=== PATIENT | female | born 1970 | race African-American/Black ===

== ENCOUNTER 2016-12-15 10:04 | Inpatient (IN) | payer MEDICARE, MEDICAID ==
[2016-12-15] MEDS ORDERED: Ondansetron HCl/PF 4 MG/2 ML Vial IVP PRN ×2 (13:37→13:49)
[2016-12-15] MEDS ORDERED: Ondansetron ODT 4 MG TAB SL PRN (13:37)
[2016-12-15] MEDS ORDERED: Aspirin 325 MG TAB PO SCH (13:45)
[2016-12-15] MEDS ORDERED: Ondansetron ODT 4 MG TAB PO PRN (13:49)
[2016-12-15] MEDS ORDERED: Labetalol HCl 100 MG/20 ML VIAL SLOW IVP PRN (13:49)
--- NOTE | 2016-12-15 15:15 | HP ---
DATE OF ADMISSION: 12/15/2016 PRIMARY CARE PHYSICIAN: Dr. Guillermo Terry. CHIEF COMPLAINT: Slurred speech and facial droop. HISTORY OF PRESENT ILLNESS: This is a 46-year-old -Lebanese female, who is a current residen t of [facility] in [place], [place], who [facility] [place] with left facial droop, difficulty with speech and left-sided weakness concerning for an acute CVA. The patient with an apparent history of prior ischemic CVA in 2013 wi th questionable left-sided weakness; however, patient stated she has been able to use her left upper extremity and left lower leg since the initial stroke in 2013. The patient was not taking aspirin or anticoagulation at the custodial according to records and confirmed by custodial staff. In the emergency room, the patient received aspirin 300 mg rectally as well as intravenous normal sali ne. The patient states she is minimally ambulatory at the group home facility due to high fall risk. The patient does state that she has been eating a modified diet with thickened liquids due t o concern for dysphagia. In the emergency room, the patient underwent general evaluation including a CT imaging of the brain showing no acute process. Chronic changes were noted. Please see dictate d report for full details. Patient was referred to the stroke unit and Hospitalist Service for furt her evaluation. PAST MEDICAL HISTORY: 1. Question of ischemic CVA in 2013. 2. Hyperlipidemia. 3. Hypertension. 4. History of atrial fibrillation. 5. Chronic seizure disorder. 6. Nonischemic cardiomyopathy with ejection fraction of 30%-40%, status post ICD placement. 7. History of peptic ulcers. 8. Morbid obesity. PAST SURGICAL HISTORY: 1. Status post right frontal craniectomy with biopsy showing leptomeninges. 2. Status post tympanostomy with bilateral ear tube placement. 3. Status post cardiac catheterization, 2015, showing normal coronary anatomy with ejection fractio n of 30%-40%. CURRENT MEDICATIONS: 1. Amiodarone 400 mg p.o. b.i.d. 2. Carvedilol 6.25 mg p.o. b.i.d. 3. Keppra 1200 mg p.o. b.i.d. 4. Lisinopril 10 mg 1 tab p.o. daily. 5. Phenobarbital 64.8 mg p.o. daily. 6. Potassium chloride 20 mEq p.o. b.i.d. 7. Spironolactone 50 mg p.o. daily. 8. Torsemide 100 mg p.o. b.i.d. ALLERGIES: TOMATOES AND PEARS. No known drug allergies. FAMILY HISTORY: Grandmother with history of heart block and pacemaker placement. Multiple family m embers with coronary artery disease. SOCIAL HISTORY: Patient resides at [facility] in [place], [place]. Di sabled, minimally ambulatory, requiring assistance with activities of daily living. No current toba tobacco sample puller, alcohol, or illicit drug use. REVIEW OF SYSTEMS: The following complete review of systems was negative, unless otherwise mentione d in the HPI or below: Constitutional: Weight loss or gain, ability to conduct usual activities. Skin: Rash, itching. Eyes: Double vision, pain. ENT/Mouth: Nose bleeding, neck stiffness, pain, tenderness. Cardiovascular: Palpitations, dyspnea on exertion, orthopnea. Respiratory: Shortnes s of breath, wheezing, cough, hemoptysis, fever, or night sweats. Gastrointestinal: Poor appetite, abdominal pain, heartburn, nausea, vomiting, constipation, or diarrhea. Genitourinary: Urgency, f requency, dysuria, nocturia. Musculoskeletal: Pain, swelling. Neurologic/Psychiatric: Anxiety, d epression. Allergy/Immunologic: Skin rash, bleeding tendency. PHYSICAL EXAMINATION: VITAL SIGNS: On admission, blood pressure 99/78, pulse 71, respiratory rate 17, temperature 97.6 d egrees Fahrenheit, O2 saturation 98% on 2 liters per minute by nasal cannula. GENERAL APPEARANCE: This is a 46-year-old -Lebanese female, somewhat lethargic, responds to questions when directly engaged and falls asleep. HEENT: Pupils are equal, round, and reactive to light and accommodation. Extraocular muscles are i ntact. Nares patent. OP is clear. Patient noted drooling during the exam. Left facial asymmetry noted. NECK: Supple, no cervical adenopathy, no thyromegaly, no carotid bruits, no JVD appreciated. Cervi niya spine with full active and passive range of motion. CHEST: Lungs are clear to auscultation bilaterally. Diminished breath sounds in the bases. CARDIOVASCULAR: S1, S2, without noted murmur. ABDOMEN: Obese, soft, nontender, nondistended. Bowel sounds are positive in all four quadrants. L andmarks are difficult to palpate due to patient's body habitus. No rebound or guarding noted. EXTREMITIES: Warm and dry with fair turgor. Minimal edema to the bilateral lower extremities. Pul ses palpable distally at the dorsalis pedis, posterior tibial, and popliteal arteries bilaterally. Capillary refill less than 2 seconds. NEUROLOGIC EXAM: Left facial asymmetry. Left hemiparesis. Expressive aphasia. Patient not observ ed ambulatory during the exam. Lethargy unless directly engaged in communication. PERTINENT LABORATORY AND X-RAY FINDINGS: Sodium 125, potassium 5.5, chloride 91, CO2 of 21, BUN 40, creatinine 1.49 with estimated GFR of 46, glucose 114, calcium 9.1. LFTs within normal limits. Al kaline phosphatase 240, troponin I 0.181, albumin 3.2. CBC showed a white blood cell count of 5.6, hemoglobin 12, hematocrit 39, platelet count [address] of the brain without contrast dated 12/15/2016 showed no acute intracranial process. Chronic changes noted. Please see dictated report for full details. EKG dated 12/15/2016 by my interpretation shows AV pacing with ra khadra in the 70s. ASSESSMENT AND PLAN: 1. Acute cerebrovascular accident. The patient will be admitted to the stroke unit. Questionable ischemic event, likely due to patient's history and without apparent chronic aspirin therapy. We wi ll continue aspirin 300 mg per rectum daily. Continue general stroke protocol. Check 2D transthora cic echocardiogram and carotid Doppler study. MRI contraindicated due to patient's ICD placement. We will obtain speech, PT, and OT assessment. Consult Neurology service for further recommendations . 2. Left hemiparesis secondary to #1. See #1 above. General fall precautions. PT evaluation pendi ng. 3. Expressive aphasia. We will obtain speech therapy consult and keep patient n.p.o. High aspirat ion risk. 4. Hypertension. We will continue with permissive hypertension for stroke protocol. P.r.n. labeta lol and hydralazine. 5. Hyponatremia. We will repeat sodium level in the a.m. Continue intravenous normal saline at 75 mL per hour. 6. Hyperkalemia. Hold potassium supplementation. Continue intravenous fluids and repeat potassium level in the a.m. 7. Question of acute kidney injury. We will continue intravenous normal saline as stated previousl y. Avoid nephrotoxic agents and contrast media. Repeat creatinine and monitor urine output. 8. Prophylaxis. Sequential compression devices while in bed. Lovenox 40 mg subcutaneously q.24 ho urs. General aspiration precautions. 9. Code status is full. Surrogate medical decision maker is patient's sister.
--- NOTE | 2016-12-15 18:10 | CON ---
DATE OF CONSULTATION: 12/15/2016 CONSULTING PHYSICIAN: Hospitalist Service. IMPRESSION: 1. New onset of left-sided weakness suggestive of stroke. 2. Severely depressed cardiac function with an ejection fraction of 10-15%, raising the possibility of cardioembolic event. 3. Hypertension. 4. Diabetes. 5. Hyperlipidemia. 6. Obesity. 7. History of atrial fibrillation. PLAN: 1. Repeat CT scan of the brain tomorrow. Given her pacemaker. 2. Continue to monitor clinical course. Ms. Powers is a 46-year-old white female who is currently a resident of [facility] in [place]. She presented to the emergency room with a left-sided weakness. She had a CT scan of the brain which did not show any acute changes according to the note. She was admitted for further evaluation, showed a carotid Doppler study, which did not show any significant stenosis . Her echocardiogram showed 10-15% ejection fraction. The patient is unable to give me any history at this point. PAST MEDICAL HISTORY: As listed above. PAST SURGICAL HISTORY: Pacemaker implantation. MEDICATIONS: Amiodarone, Coreg, Keppra, lisinopril, phenobarbital, potassium, spironolactone and to rsemide. ALLERGIES: No medication allergies. FAMILY HISTORY: Noncontributory. SOCIAL HISTORY: No current tobacco use. REVIEW OF SYSTEMS: Not obtainable. PHYSICAL EXAMINATION: GENERAL: She is an obese black female lying in bed in no apparent distress. VITAL SIGNS: Blood pressure 99/78, pulse 71, respirations 17, temperature 97.6. HEENT: Pupils are equal in size and minimally reactive. Conjunctivae clear. Cranium normocephalic and atraumatic. NECK: Supple. EXTREMITIES: No cyanosis noted. NEUROLOGIC: She seemed to be quite lethargic, but would answer with minimally lengthed answers. Sp eech seemed to be a bit dysarthric. I did not see any appreciable facial droop while lying down. T he left arm was flaccid. She held the right side up against gravity when I manipulated it. She had upgoing toe on the left and downgoing on the right. No abnormal movements were seen. EKG shows a paced rhythm. LABORATORY STUDIES: Reviewed. SUMMARY: A middle-aged woman with multiple medical problems who appears to have an acute stroke. S he has not been on any type of anticoagulation or antiplatelet therapy. Given her poor ejection fra ction, anticoagulation would appear to be the most appropriate choice if there is no evidence of sec ondary hemorrhage.
--- NOTE | 2016-12-15 18:12 | ULT ---
CAROTID ULTRASOUND WITH LOMBARDI SCALE AND DOPPLER DUPLEX COLOR FLOW IMAGING SPECTRAL ANALYSIS PERFORMED: 12/15/16 CLINICAL INDICATION: CVA. FINDINGS: There is mild intimal hyperplasia of the carotid arteries. PEAK SYSTOLIC VELOCITY (CM/S): Right CCA 26 Left CCA 48 Right ICA 15 Left ICA 54 There is antegrade flow within the visualized bilateral vertebral arteries. IMPRESSION: 1. No hemodynamically significant stenosis of the right internal carotid artery. 2. No hemodynamically significant stenosis of the left internal carotid artery. POS: MARCY
[2016-12-15] MEDS: Sodium Chloride 0.9% 1,000 ML IV SCH (18:43)
[2016-12-15] MEDS ORDERED: FLU VACC QS2017-18 36 mo. & older 0.5 ML SYRINGE IM ONE (20:30)
[2016-12-15] MEDS: Atorvastatin Calcium 40 MG TAB PO SCH ×2 (21:09→21:24)
[2016-12-15] MEDS: Famotidine/PF 20 mg/2ml Vial SLOW IVP SCH (21:09)
[2016-12-16 05:52] LABS: Hematocrit 39.2 % (36.0-47.0); Mean Platelet Volume 8.3 fL (7.4-10.4); Red Blood Cell (RBC) Count 4.71 mill/uL (4.20-5.40); White Blood Cell (WBC) Count 4.6 thou/uL (4.8-10.8)
[2016-12-16 06:01] LABS: ALT (SGPT) 11 U/L (8-55); AST (SGOT) 15 U/L (5-34); Alkaline Phosphatase 240 U/L (40-150); Anion Gap 18 mmol/L (10-20); BUN (Urea Nitrogen) 45 mg/dL (7.0-18.7); Bilirubin, Total 1.2 mg/dL (0.2-1.2); Calc. Creatinine Clearance 102 mL/min (70-130); Calcium 9.5 mg/dL (7.8-10.44); Carbon Dioxide 20 mmol/L (22-29); Chloride 94 mmol/L (98-107); Cholesterol 101 mg/dl (< 200 Desired); Estimated GFR-MDRD 46; LDL Cholesterol, Calculated 67 mg/dL; Protein, Total 8.1 g/dL (6.0-8.3)
[2016-12-16 06:07] LABS: Band 3 % (5-11)
[2016-12-16 06:41] LABS: Neutrophil 70 % (42-75)
[2016-12-16] MEDS: Sodium Chloride 0.9% 1,000 ML IV SCH ×3 (07:32→16:36)
[2016-12-16] MEDS: Enoxaparin Sodium 40 MG/0.4 ML SYRINGE SC SCH (08:40)
[2016-12-16] MEDS: Aspirin 300 MG Suppository PR SCH (12:17)
[2016-12-16] MEDS: Famotidine/PF 20 mg/2ml Vial SLOW IVP SCH ×2 (12:53→20:20)
--- NOTE | 2016-12-16 15:14 | PDOC.PN ---
- Subjective Encounter Start Date: 12/16/16 Encounter Start Time: 15:10 Subjective: f/u for CVA and L hemiparesis, dysphagia and expressive aphasia. -: Remains unsafe for po intake. - Objective Resuscitation Status: Resuscitation Status FULL:Full Resuscitation MAR Reviewed: Yes Vital Signs & Weight: Vital Signs (12 hours) Temp Pulse Pulse Resp BP BP Pulse Ox 12/16/16 11:26 97.6 F 70 18 93/67 97 12/16/16 08:57 68 115/67 12/16/16 08:50 68 115/67 12/16/16 07:40 97.6 F 68 18 12/16/16 07:30 97.6 F 68 18 102/79 95 12/16/16 04:30 97.7 F 73 12 107/73 95 Weight Admit Weight 297 lb Weight 297 lb I&O: 12/15/16 12/16/16 12/17/16 06:59 06:59 06:59 Intake Total 754 Balance 754 Result Diagrams: 12/16/16 05:14 12/16/16 05:14 Additional Labs: Laboratory Tests 12/15/16 08:50 Sodium 125 L Potassium 5.5 H Creatinine 1.49 H Radiology Reviewed by me: Yes (2D Echo - EF 10-15%, mod-severe MR, mod TR, GLENDY) EKG Reviewed by me: Yes (Tele - A-paced in 70's) Phys Exam - Physical Examination Constitutional: NAD drooling, left facial droop HEENT: PERRLA, oral pharynx no lesions Neck: no JVD, supple Respiratory: no wheezing, clear to auscultation bilateral Cardiovascular: RRR Gastrointestinal: soft, non-tender, no distention, positive bowel sounds Musculoskeletal: pulses present, edema present L hemiparesis, expressive aphasia, L facial droop Skin: normal turgor, cap refill <2 seconds Dx/Plan (1) CVA (cerebral vascular accident) Code(s): I63.9 - CEREBRAL INFARCTION, UNSPECIFIED Status: Acute Qualifiers: Laterality of affected vessel: right Comment: Continue ASA 300mg ND daily, general stroke protocol, Lipitor 40mg HS (2) Acute left hemiparesis Code(s): G81.94 - HEMIPLEGIA, UNSPECIFIED AFFECTING LEFT NONDOMINANT SIDE Status: Acute Comment: Secondary to #1, PT/OT (3) Expressive aphasia Code(s): R47.01 - APHASIA Status: Acute (4) Dysphagia Code(s): R13.10 - DYSPHAGIA, UNSPECIFIED Status: Acute Qualifiers: Dysphagia type: oropharyngeal phase Qualified Code(s): R13.12 - Dysphagia, oropharyngeal phase Comment: ST restricting po intake due to high aspiration risk, reassess in 24h (5) HTN (hypertension) Code(s): I10 - ESSENTIAL (PRIMARY) HYPERTENSION Status: Chronic Qualifiers: Hypertension type: essential hypertension Qualified Code(s): I10 - Essential (primary) hypertension (6) Morbid obesity Code(s): E66.01 - MORBID (SEVERE) OBESITY DUE TO EXCESS CALORIES Status: Chronic (7) Non-ischemic cardiomyopathy Code(s): I42.9 - CARDIOMYOPATHY, UNSPECIFIED Status: Chronic Comment: EF 10- 15%, continue Lisinopril 10mg daily, AICD/pacer in place (8) NNEKA (acute kidney injury) Code(s): N17.9 - ACUTE KIDNEY FAILURE, UNSPECIFIED Status: Acute Comment: Low volume IVF's, avoid nephrotoxic meds and contrast, repeat creatinine in am (9) Hyponatremia Code(s): E87.1 - HYPO-OSMOLALITY AND HYPONATREMIA Status: Acute Comment: mild, recheck Na+ level in am (10) Hyperkalemia Code(s): E87.5 - HYPERKALEMIA Status: Acute Comment: Improved marginally, continue low-volume IVF's - Plan PT/OT, social work lecturer, speech therapy, respiratory therapy, DVT proph w/SCDs Stable overall -: Continue NPO status and reassess in 24h -: Continue ASA 300mg ND daily -: Continue IV NS at 50ml/h -: PT/OT for ROM exercises * Repeat CT Brain in am * AM lab: BMP
[2016-12-16] MEDS: levETIRAcetam In NaCl (Iso-Os) 1,000 MG in Premix Bag 1 BAG IVPB SCH ×4 (17:27→20:20)
[2016-12-16] MEDS: Atorvastatin Calcium 40 MG TAB PO SCH (20:21)
[2016-12-17] MEDS: Sodium Chloride 0.9% 1,000 ML IV SCH ×2 (03:53→11:30)
[2016-12-17 05:42] LABS: Anion Gap 17 mmol/L (10-20); BUN (Urea Nitrogen) 44 mg/dL (7.0-18.7); Calc. Creatinine Clearance 107 mL/min (70-130); Calcium 9.3 mg/dL (7.8-10.44); Carbon Dioxide 20 mmol/L (22-29); Chloride 100 mmol/L (98-107); Estimated GFR-MDRD 49
--- NOTE | 2016-12-17 09:04 | CT ---
HEAD CT NONCONTRAST: Comparison: 12-15-16 Clinical history: CVA. FINDINGS: Newly developed region of mass producing edema is present within the anterior right cerebral hemisph ere occupying the frontal, anterior parietal and anterior right temporal lobe. This does result in m ild ventricular effacement and slight shift of midline, with septum pellucidum deviated 4-5 mm to th e left of midline. There is no intracranial hemorrhage identified. Re-demonstration of left frontal encephalomalacia with ex vacuo dilation of the ventricular system. Newly developed edema involves th e right basal ganglia and thalamus. Post-operative changes of the calvarium re-demonstrated. IMPRESSION: Interval development of prominent sized right MCA distribution infarction with associated edema and mass effect. This does result in effacement of the ventricular system and mild leftward subfalcine h erniation. Telephone call placed to Dr. Jackson at 0845 hours, 12-17-16. Code CR POS: MARCY
[2016-12-17] MEDS: levETIRAcetam In NaCl (Iso-Os) 1,000 MG in Premix Bag 1 BAG IVPB SCH ×4 (09:46→21:41)
[2016-12-17] MEDS: Famotidine/PF 20 mg/2ml Vial SLOW IVP SCH ×2 (09:46→21:41)
[2016-12-17] MEDS: Aspirin 300 MG Suppository PR SCH (09:46)
--- NOTE | 2016-12-17 10:39 | PDOC.PN ---
- Subjective Encounter Start Date: 12/17/16 Encounter Start Time: 09:25 -: non-verbal Subjective: pt was unresponsive -: rpt CT head done this AM showed subfalcine herniation - Objective Resuscitation Status: Resuscitation Status FULL:Full Resuscitation MAR Reviewed: Yes Vital Signs & Weight: Vital Signs (12 hours) Temp Pulse Resp BP Pulse Ox 12/17/16 10:11 96.2 F L 72 18 106/81 100 12/17/16 07:10 97.5 F L 70 16 93/67 98 12/17/16 03:26 97.3 F L 70 16 109/80 96 12/16/16 23:35 97.2 F L 68 16 102/78 94 L Weight Admit Weight 297 lb Weight 297 lb I&O: 12/16/16 12/17/16 12/18/16 06:59 06:59 06:59 Intake Total 754 Balance 754 Result Diagrams: 12/16/16 05:14 12/17/16 05:16 Radiology Reviewed by me: Yes Phys Exam - Physical Examination Neck: no nodes, no JVD Respiratory: no wheezing, no rales, no rhonchi diminished BS AT BAESE Cardiovascular: RRR, no significant murmur, no rub, gallop Gastrointestinal: soft, non-tender, no distention, positive bowel sounds MORBID OBESITY Musculoskeletal: no edema, pulses present LETHARGIC, AORUSABLE. NO RESPONSE TO VERBAL QUERIES Skin: no rash Dx/Plan (1) NNEKA (acute kidney injury) Code(s): N17.9 - ACUTE KIDNEY FAILURE, UNSPECIFIED Status: Acute Comment: Low volume IVF's, avoid nephrotoxic meds and contrast, repeat creatinine in am (2) Acute left hemiparesis Code(s): G81.94 - HEMIPLEGIA, UNSPECIFIED AFFECTING LEFT NONDOMINANT SIDE Status: Acute Comment: Secondary to #1, PT/OT (3) CVA (cerebral vascular accident) Code(s): I63.9 - CEREBRAL INFARCTION, UNSPECIFIED Status: Acute Qualifiers: Laterality of affected vessel: right Plan: CVA evloving with subfalcine herniation. Neurosurgical consultation Comment: Continue ASA 300mg ND daily, general stroke protocol, Lipitor 40mg HS (4) Dysphagia Code(s): R13.10 - DYSPHAGIA, UNSPECIFIED Status: Acute Qualifiers: Dysphagia type: oropharyngeal phase Qualified Code(s): R13.12 - Dysphagia, oropharyngeal phase Plan: keep NPO Comment: ST restricting po intake due to high aspiration risk, reassess in 24h (5) Expressive aphasia Code(s): R47.01 - APHASIA Status: Acute Plan: cont neuro checks (6) Acute on chronic systolic (congestive) heart failure Code(s): I50.23 - ACUTE ON CHRONIC SYSTOLIC (CONGESTIVE) HEART FAILURE Status : Acute Plan: stable, will monitor cardio resp status closely Comment: Improved, continue Lasix 20mg IV q12h, may transition to po Lasix in 24h (7) HTN (hypertension) Code(s): I10 - ESSENTIAL (PRIMARY) HYPERTENSION Status: Chronic Qualifiers: Hypertension type: essential hypertension Qualified Code(s): I10 - Essential (primary) hypertension Plan: controlled, continue current care (8) Morbid obesity Code(s): E66.01 - MORBID (SEVERE) OBESITY DUE TO EXCESS CALORIES Status: Chronic (9) Non-ischemic cardiomyopathy Code(s): I42.9 - CARDIOMYOPATHY, UNSPECIFIED Status: Chronic Plan: stable Comment: EF 10-15%, continue Lisinopril 10mg daily, AICD/pacer in place (10) Hyponatremia Code(s): E87.1 - HYPO-OSMOLALITY AND HYPONATREMIA Status: Acute Plan: improved , cont present care Comment: mild, recheck Na+ level in am - Plan * .At this time pt will be transferred to [facility]. we will get neurosurgery consultation - Discharge Day Minutes spent coordinating discharge of patient: 55
[2016-12-17] MEDS: Enoxaparin Sodium 40 MG/0.4 ML SYRINGE SC SCH (10:52)
[2016-12-17] MEDS ORDERED: Mannitol 12.5 GM/50 ML SLOW IVP SCH (12:45)
[2016-12-17] MEDS ORDERED: MANNITOL 20% IVPB SCH (13:15)
--- NOTE | 2016-12-17 13:43 | CON ---
DATE OF CONSULTATION: 12/17/2016 HISTORY OF PRESENT ILLNESS: Ms. Powers is a 46-year-old woman who was admitted to [facility] on 12/15 following change in mental status, facial droop and aphasia. She was admitted to the [facility] by the Hospitalist Service. Neurosurgery was consulted for. CT scan performed this morning of the brain that shows a right-sided MCA region of infarct with a great deal of edema and 4-6 mm of midline shift and possible subfalcine herniation. The nursing staff in the stroke unit noted a chica nge in her mental status and decline in level of consciousness. She was transferred to the [facility]. U coty examination at bedside, the patient is somewhat listless, but does arouse and answer questions a ppropriately. She has some mild aphasia, which I think is more of a motor function aphasia given th e left-sided facial droop. Cranial nerve 7 is infected in the lower quadrant of the face on the lef t side. She is also unable to open her eyes that much on the left. She has no motor function in th e left upper extremity or left lower extremity. This all fits the distribution of the stroke that s he has had. She has great motor strength in the right upper and lower extremities and on the right side of her face. Even though she becomes alert and appropriate and answers questions, she quickly declines in level of consciousness and requires constant stimulation during our discussion. Neurosu ayana's recommendation at this point would not be wanting surgical intervention, but I do think a tr ial of a single dose of mannitol to see if we can improve some of her level of consciousness, it wou ld be appropriate. If it does, we can certainly continue that q.6 hours. We will start with a sing le dose of 135 grams of mannitol IV and if we see improvement, we will add q.6 hours 0.25 g/kg dosin g with paired checks of serum sodium and serum osmolality before each dose was given. Neurosurgery will continue to follow at this time. This is Andrea Gracia PA-C, dictating for Mustapha Mendez M.D.
[2016-12-17] MEDS ORDERED: IN MANNITOL IV SCH (14:00)
[2016-12-17] MEDS ORDERED: ADMIXTURE FEE IV SCH (14:00)
--- NOTE | 2016-12-17 17:01 | PDOC.EVN ---
Event Note - Event Note Event Note: pt not a candidate for A/c due to subfalcine herniation and possible need for urgent neurosurgical procedure. cont present IV fluids and monitor cardiac status.
--- NOTE | 2016-12-17 18:41 | CON ---
DATE OF CONSULTATION: 12/17/2016 REASON FOR CONSULTATION: Congestive heart failure systolic, stroke. PRIMARY HOSPITAL RECEPTIONIST: Dr. Mynor John. HISTORY OF PRESENT ILLNESS: Ms. Powers is a 46-year-old woman, patient of Dr. John. The patient wa s brought to the hospital after being found to have severe weakness of the left side of her body. S he also had a facial droop, difficulty with speech. She had a prior ischemic stroke in 2013. She s aid she had been able to use the left side of her body; however, up until the 12/15/2016. The patient now is not able to move the left side of her body. PAST MEDICAL HISTORY: 1. Questionable ischemic stroke in 2013. 2. Hyperlipidemia. 3. Hypertension. 4. Nonischemic cardiomyopathy, most recent ejection fraction prior to this admission was 30-40%. PAST SURGICAL HISTORY: She had a catheterization 2016, normal coronary arteries. MEDICATIONS PRIOR TO ADMISSION: 1. Amiodarone 400 mg twice a day. 2. Carvedilol. 3. Keppra. 4. Lisinopril. 5. Phenobarbital 6. Spironolactone. 7. Torsemide. ALLERGIES: TOMATOES and PEARS. FAMILY HISTORY: Grandmother with heart block and pacemaker. SOCIAL HISTORY: Lives in a alf facility, disabled. REVIEW OF SYSTEMS: Per the chart reveals; CONSTITUTIONAL: No significant weight gain or loss. VISION: No changes. HEARING: No changes. PULMONARY: No cough or wheezing. CARDIAC: No chest pain or pressure. GASTROINTESTINAL: No nausea, vomiting, diarrhea. SKIN: No rashes. GENERAL: The patient is very sleepy now and unable to give me the review of systems. PHYSICAL EXAMINATION: GENERAL: This is a 46-year-old woman. She is 5 foot 4 inches, 297 pounds, BMI 51. EYES: Sclerae nonicteric. Mouth, mucous membranes moist. NECK: Supple, no lymphadenopathy. LUNGS: Clear, no wheezing, rales or rhonchi. CARDIOVASCULAR: Normal S1, normal S2. There is no murmur, rub or gallop. ABDOMEN: Obese, nontender, no hepatosplenomegaly. EXTREMITIES: Warm, dry, no clubbing, cyanosis or edema. LABORATORY AND X-RAY FINDINGS: EKG reveals atrial paced ventricular sensed rhythm. The device was interrogated and function is within normal limits. There is no atrial arrhythmias according to the verbal report from the [employer] home service technician. The patient has had evaluation with a carotid Doppler showing no obstructions a brain CT showing no bleed. ASSESSMENT: 1. Recent stroke. The CT did show a mass producing edema of the anterior right cerebral hemisphere , right middle cerebral artery stroke. 2. Ejection fraction of 30-40%, interpreted as 10-15% by Dr. Staton on this admission. 3. Previous pacemaker defibrillator implantation. PLAN: 1. Dr. Melissa suggested the possibility of anticoagulation in case this is cardioembolic, does not seem to have significant vascular disease. 2. At some point, we may need to consider upgrading to a biventricular pacemaker on occasion ventri cular pacing leads to depression of left ventricular function. Dr. John will resume patient's care tomorrow. 3. At this point, it would appear appropriate to treat with carvedilol, lisinopril, and continued l ow dose amiodarone. Dr. John will resume the care tomorrow. ADDENDUM: I found old records, it actually does appear that the patient does have a biventricular device in pl [place] with INSULATION INSTALLER function.
[2016-12-17] MEDS: Atorvastatin Calcium 40 MG TAB PO SCH (21:44)
[2016-12-18] MEDS: Sodium Chloride 0.9% 1,000 ML IV SCH (06:46)
[2016-12-18] MEDS: levETIRAcetam In NaCl (Iso-Os) 1,000 MG in Premix Bag 1 BAG IVPB SCH ×4 (08:48→20:43)
[2016-12-18] MEDS: Famotidine/PF 20 mg/2ml Vial SLOW IVP SCH ×2 (08:48→20:44)
[2016-12-18] MEDS: Aspirin 300 MG Suppository PR SCH (08:48)
[2016-12-18] MEDS: Enoxaparin Sodium 40 MG/0.4 ML SYRINGE SC SCH (12:51)
--- NOTE | 2016-12-18 14:38 | PRG ---
DATE OF SERVICE: 12/18/2016 SUBJECTIVE: Ms. Powers is doing much better today than she was yesterday when the initial consultat ion. She is much more alert and awake. She has some minimal movement in the left lower extremity. No movement in the left upper extremity, but she has sensation intact in both fully. Her facial dr oop is persistent, but her speech is improving. Plan today will be to attempt a facial screening ag ain to see if she can start p.o. intake. Definitively, no surgical intervention at this time. She only had 1 dose of mannitol yesterday and I think this is appropriate. She does not need any additi onal doses. Neurosurgery will sign off at this time. Andrea Gracia PA-C dictating for Dr. Mendez.
--- NOTE | 2016-12-18 15:51 | PDOC.PN ---
- Subjective Encounter Start Date: 12/18/16 Encounter Start Time: 10:00 Subjective: pt slightly more awake, now on mannitol -: NS input appreciated -: failed bedside swallow but refusing NGT/ PEG pt still lethargic but following simple commands. is persitantly denying feeding tube placement. - Objective Resuscitation Status: Resuscitation Status FULL:Full Resuscitation Vital Signs & Weight: Vital Signs (12 hours) Temp Pulse Resp BP Pulse Ox 12/18/16 15:07 97.6 F 71 20 96/62 97 12/18/16 11:00 97.6 F 78 16 102/78 96 12/18/16 06:54 97.6 F 70 20 119/88 98 Weight Admit Weight 297 lb Weight 297 lb I&O: 12/17/16 12/18/16 12/19/16 06:59 06:59 06:59 Intake Total 955 700 Balance 955 700 Result Diagrams: 12/16/16 05:14 12/17/16 05:16 Phys Exam - Physical Examination left facial droop Respiratory: clear to auscultation bilateral Cardiovascular: RRR, no significant murmur, no rub, gallop Gastrointestinal: soft, non-tender, no distention, positive bowel sounds morbid obesity left hemiparesis unchanged Dx/Plan (1) NNEKA (acute kidney injury) Code(s): N17.9 - ACUTE KIDNEY FAILURE, UNSPECIFIED Status: Acute Comment: Low volume IVF's, avoid nephrotoxic meds and contrast, repeat creatinine in am (2) Acute left hemiparesis Code(s): G81.94 - HEMIPLEGIA, UNSPECIFIED AFFECTING LEFT NONDOMINANT SIDE Status: Acute Comment: Secondary to #1, PT/OT (3) CVA (cerebral vascular accident) Code(s): I63.9 - CEREBRAL INFARCTION, UNSPECIFIED Status: Acute Qualifiers: Laterality of affected vessel: right Comment: Continue ASA 300mg [place] daily, general stroke protocol, Lipitor 40mg HS (4) Dysphagia Code(s): R13.10 - DYSPHAGIA, UNSPECIFIED Status: Acute Qualifiers: Dysphagia type: oropharyngeal phase Qualified Code(s): R13.12 - Dysphagia, oropharyngeal phase Comment: ST restricting po intake due to high aspiration risk, reassess in 24h (5) Expressive aphasia Code(s): R47.01 - APHASIA Status: Acute (6) Acute on chronic systolic (congestive) heart failure Code(s): I50.23 - ACUTE ON CHRONIC SYSTOLIC (CONGESTIVE) HEART FAILURE Status : Acute Comment: Improved, continue Lasix 20mg IV q12h, may transition to po Lasix in 24h (7) HTN (hypertension) Code(s): I10 - ESSENTIAL (PRIMARY) HYPERTENSION Status: Chronic Qualifiers: Hypertension type: essential hypertension Qualified Code(s): I10 - Essential (primary) hypertension Comment: controlled (8) Morbid obesity Code(s): E66.01 - MORBID (SEVERE) OBESITY DUE TO EXCESS CALORIES Status: Chronic (9) Non-ischemic cardiomyopathy Code(s): I42.9 - CARDIOMYOPATHY, UNSPECIFIED Status: Chronic Comment: EF 10- 15%, continue Lisinopril 10mg daily, AICD/pacer in place (10) Hyponatremia Code(s): E87.1 - HYPO-OSMOLALITY AND HYPONATREMIA Status: Acute Comment: mild, recheck Na+ level in am - Plan * . pt still lethargic but following simple commands. is persitantly denying feeding tube placement. will recommend dobhoff tube till neuro status improved, then ST to reevaluate. Pt cannot have too much fluids indefinitely d/t her cardiac issues. withhold A/c in view of large stroke and possibility of surgery. recheck labs. f/u on cardio/ neuro input. will request case management to find out MPOA.. d/w RN, family members at bedside.
[2016-12-18 17:15] LABS: Hematocrit 42.7 % (36.0-47.0); Mean Platelet Volume 9.7 fL (7.4-10.4); Red Blood Cell (RBC) Count 4.94 mill/uL (4.20-5.40); White Blood Cell (WBC) Count 4.3 thou/uL (4.8-10.8)
[2016-12-18 17:20] LABS: Anion Gap 18 mmol/L (10-20); BUN (Urea Nitrogen) 33 mg/dL (7.0-18.7); Calc. Creatinine Clearance 127 mL/min (70-130); Calcium 9.4 mg/dL (7.8-10.44); Carbon Dioxide 19 mmol/L (22-29); Chloride 109 mmol/L (98-107); Estimated GFR-MDRD 60
[2016-12-18 17:26] LABS: Anisocytosis MODERATE=16-30 cells (100X) (0-5/hpf); Band 1 % (5-11); Burr Cells MODERATE= 6-15 cells (100X) (0-1/hpf); Hypochromia SLIGHT = 6-15 cells (100X) (0-5/hpf); Neutrophil 74 % (42-75); Nucleated RBC 1 % (0); Ovalocytes SLIGHT = 2-5 cells (100X) (0-1/hpf); Polychromasia SLIGHT = 2-3 cells (100X) (0-2/hpf); Reactive Lymphocytes 1 % (0-10); Schistocytes SLIGHT = 2-5 cells (100X) (0-1/hpf); Target Cells SLIGHT = 2-5 cells (100X) (0-1/hpf); Vacuoles SLIGHT
[2016-12-18] MEDS: Atorvastatin Calcium 40 MG TAB PO SCH (20:43)
[2016-12-19] MEDS: Sodium Chloride 0.9% 1,000 ML IV SCH (04:54)
[2016-12-19] MEDS: Famotidine/PF 20 mg/2ml Vial SLOW IVP SCH ×2 (08:20→20:39)
[2016-12-19] MEDS: Aspirin 300 MG Suppository PR SCH (08:20)
[2016-12-19] MEDS: levETIRAcetam In NaCl (Iso-Os) 1,000 MG in Premix Bag 1 BAG IVPB SCH ×4 (08:20→20:39)
[2016-12-19 10:33] LABS: Anion Gap 20 mmol/L (10-20); BUN (Urea Nitrogen) 30 mg/dL (7.0-18.7); Calc. Creatinine Clearance 129 mL/min (70-130); Calcium 9.6 mg/dL (7.8-10.44); Carbon Dioxide 19 mmol/L (22-29); Chloride 112 mmol/L (98-107); Estimated GFR-MDRD 61
--- NOTE | 2016-12-19 11:13 | PDOC.CTH ---
<Yolanda Piña - Last Filed: 12/19/16 10:57> Cardiology Progress Note - Subjective The pt was seen and evaluated. No overnight events. No cardiac complaints. According to nurse, the pt is more alert today. The pt was able to answer questions today and denied any cardiac complaints at this time. Waiting for family to confirm the PEG tube placement - Objective Vital Signs Temp Pulse Resp BP Pulse Ox 12/19/16 10:04 98 12/19/16 08:00 97.6 F 70 20 99 12/19/16 07:00 97.6 F 70 20 109/78 98 12/19/16 03:37 97.5 F L 80 18 105/75 99 12/18/16 23:35 97.6 F 80 20 113/78 98 Admit Weight 297 lb Weight 297 lb 12/18/16 12/19/16 12/20/16 06:59 06:59 06:59 Intake Total 955 1310 Balance 955 1310 - Physical Examination General/Neuro: other: (Alert) Neck: no JVD present Lungs: CTA Heart: RRR, other: Abdomen: soft Extremities: other: (No edema) - Telemetry Telemetry Rhythm: AV paced - Labs Result Diagrams: 12/18/16 16:49 12/19/16 09:49 - Assessment/Plan 1. Rt CVA with Lt side weakness - according to nurse, the pt is more alarted today; on ASA 300mg [place] daily, general stroke protocol, Lipitor 40mg HS; managed by neurologists. 2. Non-ischemic cardiomyopathy - EF 10-15%, AICD/pacer in place; Possible change to BiV when the pt is stable 3. Acute on chronic systolic heart failure - stable with current medication 4. HTN - well controlled with current medication 5. NNEKA - stable; cont. NS 50m;/h; 6. Dysphagia - NPO at this moment; possible PEG tube placement 7. Dyslipidemia - on Statin med; MAR reviewed Review of Systems - Review of Systems Constitutional: reports: no symptoms reported EENTM: reports: no symptoms reported Respiratory: reports: no symptoms reported Cardiac (ROS): reports: no symptoms reported <Nilam John - Last Filed: 12/19/16 16:41> Cardiology Progress Note - Objective Vital Signs Temp Pulse Pulse Pulse Resp BP BP 12/19/16 15:29 96.2 F L 71 18 12/19/16 12:00 71 72 103/84 94/76 12/19/16 11:44 70 20 12/19/16 10:04 12/19/16 08:00 97.6 F 70 20 12/19/16 07:00 97.6 F 70 20 BP Pulse Ox 12/19/16 15:29 101/78 97 12/19/16 12:00 12/19/16 11:44 92/69 97 12/19/16 10:04 98 12/19/16 08:00 99 12/19/16 07:00 109/78 98 Admit Weight 297 lb Weight 297 lb 12/18/16 12/19/16 12/20/16 06:59 06:59 06:59 Intake Total 955 1310 Balance 955 1310 - Labs Result Diagrams: 12/19/16 09:49 12/19/16 09:49 - Assessment/Plan Pt. seen and eval. by me.I agree with the A/P by the [employer] except the pt. already has a Bi-V AICD. Prognosis is poor. The EF may have worsened in the face of the acute CVA and may improve over the next couple weeks when the CVA problems / symptoms become more stable.
[2016-12-19 11:17] LABS: Band 4 % (5-11); Burr Cells MODERATE= 6-15 cells (100X) (0-1/hpf); Mean Platelet Volume 8.2 fL (7.4-10.4); Neutrophil 69 % (42-75); Polychromasia SLIGHT = 2-3 cells (100X) (0-2/hpf); Red Blood Cell (RBC) Count 4.99 mill/uL (4.20-5.40); White Blood Cell (WBC) Count 4.5 thou/uL (4.8-10.8)
--- NOTE | 2016-12-19 16:20 | PDOC.PN ---
- Subjective Encounter Start Date: 12/19/16 Encounter Start Time: 11:55 Subjective: pt more awake, is aphasic but following simple instructions -: claims consultant input appreciated -: has been refusing PEG - Objective Resuscitation Status: Resuscitation Status FULL:Full Resuscitation Vital Signs & Weight: Vital Signs (12 hours) Temp Pulse Pulse Pulse Resp BP BP 12/19/16 15:29 96.2 F L 71 18 12/19/16 12:00 71 72 103/84 94/76 12/19/16 11:44 70 20 12/19/16 10:04 12/19/16 08:00 97.6 F 70 20 12/19/16 07:00 97.6 F 70 20 BP Pulse Ox 12/19/16 15:29 101/78 97 12/19/16 12:00 12/19/16 11:44 92/69 97 12/19/16 10:04 98 12/19/16 08:00 99 12/19/16 07:00 109/78 98 Weight Admit Weight 297 lb Weight 297 lb I&O: 12/18/16 12/19/16 12/20/16 06:59 06:59 06:59 Intake Total 955 1310 Balance 955 1310 Result Diagrams: 12/19/16 09:49 12/19/16 09:49 Phys Exam - Physical Examination dry mm, poor oral hygiene Neck: no nodes, no JVD diminished BS at bases Cardiovascular: RRR, no significant murmur, no rub Gastrointestinal: soft, non-tender, no distention, positive bowel sounds obese left facial droop, left HP Dx/Plan (1) NNEKA (acute kidney injury) Code(s): N17.9 - ACUTE KIDNEY FAILURE, UNSPECIFIED Status: Acute Comment: Low volume IVF's, avoid nephrotoxic meds and contrast, repeat creatinine in am (2) Acute left hemiparesis Code(s): G81.94 - HEMIPLEGIA, UNSPECIFIED AFFECTING LEFT NONDOMINANT SIDE Status: Acute Comment: Secondary to #1, PT/OT (3) CVA (cerebral vascular accident) Code(s): I63.9 - CEREBRAL INFARCTION, UNSPECIFIED Status: Acute Qualifiers: Laterality of affected vessel: right Comment: Continue ASA 300mg [place] daily, general stroke protocol, Lipitor 40mg HS (4) Dysphagia Code(s): R13.10 - DYSPHAGIA, UNSPECIFIED Status: Acute Qualifiers: Dysphagia type: oropharyngeal phase Qualified Code(s): R13.12 - Dysphagia, oropharyngeal phase Comment: ST restricting po intake due to high aspiration risk, reassess in 24h (5) Expressive aphasia Code(s): R47.01 - APHASIA Status: Acute (6) Acute on chronic systolic (congestive) heart failure Code(s): I50.23 - ACUTE ON CHRONIC SYSTOLIC (CONGESTIVE) HEART FAILURE Status : Acute Comment: Improved, continue Lasix 20mg IV q12h, may transition to po Lasix in 24h (7) HTN (hypertension) Code(s): I10 - ESSENTIAL (PRIMARY) HYPERTENSION Status: Chronic Qualifiers: Hypertension type: essential hypertension Qualified Code(s): I10 - Essential (primary) hypertension Comment: controlled (8) Morbid obesity Code(s): E66.01 - MORBID (SEVERE) OBESITY DUE TO EXCESS CALORIES Status: Chronic (9) Non-ischemic cardiomyopathy Code(s): I42.9 - CARDIOMYOPATHY, UNSPECIFIED Status: Chronic Comment: EF 10- 15%, continue Lisinopril 10mg daily, AICD/pacer in place (10) Hyponatremia Code(s): E87.1 - HYPO-OSMOLALITY AND HYPONATREMIA Status: Acute Comment: mild, recheck Na+ level in am (11) Aphasia Code(s): R47.01 - APHASIA Status: Acute - Plan * . we will continue with present care. I explained to the pt with primary RN at bedside the risks of PO intake given the fact that she has had a major CVA. risks include aspiration pneumonia, sepsis , septic shock and possibly . I also explained gaetano tif she improves after ST rehab, the PEG may potentially be removed. she indicates she wants to talk to the her sister and then decide. we will wait for family decision. if pt agrees , will get GI consult and cardiac clearance
--- NOTE | 2016-12-19 17:26 | CON ---
DATE OF CONSULTATION: 12/19/2016 GI INPATIENT CONSULTATION NOTE REQUESTING PHYSICIAN: Dr. Solano. REASON FOR CONSULTATION: PEG placement. HISTORY OF PRESENT ILLNESS: Dottie Powers is an unfortunate 46-year-old -Serbian woman with a history of atrial fibrillation and pacemaker placement, nonischemic cardiomyopathy with congestive heart failure and current ejection fraction of only 10%-15%. She was admitted to the hospital 4 da ys ago on 12/15/2016 with acute left-sided weakness and aphasia. On imaging, she was found to have a large right MCA stroke with mass effect and subfalcine hemorrhage. She was treated with mannitol and has had some improvement in neurologic function. However, she remains hemiplegic and also has o ropharyngeal dysphagia. She has failed a swallow evaluation. Cardiac evaluation demonstrated eject ion fraction of only 10%-15%. Carotid Dopplers were negative for hemodynamically significant stenos is. It does not appear she has had any abdominal surgeries in the past. She is not on any anticoag ulation. We are consulted for consideration of PEG tube placement. REVIEW OF SYSTEMS: Full review of systems including constitutional, head, eyes, ears, nose, throat, GI, , cardiovascular, respiratory, musculoskeletal, and neurologic systems is negative except as noted in the HPI. PAST MEDICAL HISTORY: Congestive heart failure with systolic ejection fraction of only 10%-15%, non ischemic cardiomyopathy, atrial fibrillation, pacemaker/AICD, morbid obesity, hyperlipidemia, diabet es, hypertension. ALLERGIES: No known drug allergies. INPATIENT MEDICATIONS: Aspirin 81 mg daily, Pepcid IV, Keppra. SOCIAL HISTORY: Not a current smoker. FAMILY HISTORY: Noncontributory. PHYSICAL EXAMINATION: VITAL SIGNS: Temperature 96.2, pulse 71, blood pressure 101/78, 97% oxygen saturation on 2 liters n tatum cannula. GENERAL: Obese 46-year-old -Serbian woman lying in bed comfortably in no distress. MENTAL: She is awake and alert. She is able to answer questions regarding her symptoms and seems t o understand our conversation regarding PEG placement and gives her consent. She does slur her spee ch, some of the words are difficult to understand. SKIN: No jaundice, no rashes were palpable. No surgical scars apparent to the anterior abdomen in the left upper quadrant. EYES: No scleral icterus. ENT: Mucous membranes moist. LYMPH: No submandibular or supraclavicular lymphadenopathy. THYROID: Nontender to palpation. HEART: Regular rhythm. LUNGS: Clear to auscultation bilaterally. ABDOMEN: Obese. No surgical scars apparent to the left upper quadrant. Bowel sounds active, soft and nontender to palpation. EXTREMITIES: No peripheral edema. VESSELS: Radial pulses 2+ bilaterally. NEUROLOGICAL: She has left-sided weakness and slurring of speech. LABORATORY STUDIES: WBC 4.5, hemoglobin 13.2, platelets 347, BUN 30, creatinine 1.16, sodium 146, p otassium 4.6. Total bilirubin 1.2, alkaline phosphatase 240, AST 15, ALT 11, albumin 3.1. IMAGING STUDIES: Brain CT showed large right MCA distribution infarction with mass effect and subfa lcine hemorrhage. Echocardiogram demonstrated systolic ejection fraction only 10%-15%. ASSESSMENT AND PLAN: 1. Oropharyngeal dysphagia following stroke. 2. Large right middle cerebral artery distribution stroke. 3. Severe congestive heart failure, systolic, I agree that percutaneous endoscopic gastrostomy plac andi is indicated for nutritional delivery given her new oropharyngeal dysphagia. Obviously, she i s somewhat high risk for any procedure with her cardiac issues including severe congestive heart dominguez lure. The patient expresses understanding and desires to proceed and I believe, she understands all of the implications. We will plan for percutaneous endoscopic gastrostomy placement tomorrow. Thank you for the consultation. Please call with questions or concerns.
[2016-12-19] MEDS: Atorvastatin Calcium 40 MG TAB PO SCH (20:40)
[2016-12-19 21:34] LABS: Bilirubin Negative (Negative); Blood, Urine Negative (Negative); Glucose, Urine (Dipstick) Negative (Negative); Ketone, Urine Negative (Negative); Nitrite Negative (Negative); Protein, Urine (Dipstick) Negative (Neg-Trace)
[2016-12-20] MEDS: Sodium Chloride 0.9% 1,000 ML IV SCH ×2 (00:48→14:35)
[2016-12-20 06:11] LABS: Anion Gap 16 mmol/L (10-20); BUN (Urea Nitrogen) 31 mg/dL (7.0-18.7); Calc. Creatinine Clearance 129 mL/min (70-130); Calcium 9.7 mg/dL (7.8-10.44); Carbon Dioxide 21 mmol/L (22-29); Chloride 116 mmol/L (98-107); Estimated GFR-MDRD 61
[2016-12-20] MEDS: Aspirin 300 MG Suppository PR SCH (08:38)
[2016-12-20] MEDS: Famotidine/PF 20 mg/2ml Vial SLOW IVP SCH ×2 (08:38→20:55)
[2016-12-20] MEDS: levETIRAcetam In NaCl (Iso-Os) 1,000 MG in Premix Bag 1 BAG IVPB SCH ×4 (08:39→20:56)
--- NOTE | 2016-12-20 11:58 | OP ---
DATE OF PROCEDURE: 12/20/2016 GI ENDOSCOPY NOTE SURGEON: Garland Lane M.D. COTTON BUYER SURGEON: None. PROCEDURES: 1. Esophagogastroduodenoscopy. 2. Aborted percutaneous endoscopic gastrostomy placement, due to inability to transilluminate or fi nd a suitable site endoscopically. INDICATIONS: 1. Oropharyngeal dysphagia following stroke. 2. Right MCA stroke. 3. Severe systolic heart failure. MEDICATIONS: 1. See anesthesia record. 2. Ancef 2 grams IV as reji-procedural prophylaxis. FINDINGS: After discussion of the risks, benefits and alternatives of the procedure, informed conse nt was obtained and witnessed. Pre-endoscopic cardiopulmonary examination was satisfactory. Timeou t was performed before sedation was achieved. Sedation was achieved with anesthesia assistance in [facility] endoscopy unit. The patient was placed in the supine position. A Pentax adult upper endoscope w as placed into the oropharynx and passed through the cricopharyngeus under direct visualization. Th e esophageal mucosa appeared normal throughout. The endoscope was advanced into the stomach. Forwa rd and retroflexed views of the entire gastric mucosa were obtained. There is some diffuse erythema and friability throughout the stomach, but no evidence of any erosions or ulcerations. The endosco pe was advanced through the pylorus and into the first and second portions of the duodenum which lauro eared normal. The endoscope was then withdrawn back into the stomach in an attempt to find a suitab le site for PEG placement. Unfortunately, we were unable to transilluminate through the abdominal w all from the gastric lumen in order to locate a suitable site. We did achieve 1:1 pressure and what appeared to be the mid gastric body; however, we could not get the light to shine through and there fore we were unable to safely proceed with PEG placement. At that time, it was decided to abort PEG placement. The PEG kit was not opened. No incisions were made. The upper endoscope was completel y withdrawn and the patient allowed to recover. The patient tolerated the procedure well. There we re no immediate post-procedure complications. Following the procedure, Dr. Mills placed a nasogastr ic Dobbhoff tube for enteral feeds. IMPRESSION: 1. Diffuse nonerosive gastritis. 2. Aborted percutaneous endoscopic gastrostomy placement, due to inability to transilluminate and t herefore inability to find a successful site for percutaneous endoscopic gastrostomy placement. RECOMMENDATIONS: 1. Check Dobbhoff tube placement with x-ray. 2. Surgical consultation for consideration of surgical PEG. GI will sign off, but please call back with questions or concerns.
--- NOTE | 2016-12-20 12:27 | RAD ---
ABDOMEN 1 VIEW: HISTORY: Feeding tube placement. FINDINGS: Visualized bowel gas pattern is nonspecific. Dobbhoff-type feeding catheter is coiled over the stom ach with the tip at the level of the gastric fundus directed towards the GE junction. Metallic clip s overlie the gallbladder fossa. POS: [facility]
--- NOTE | 2016-12-20 15:30 | PDOC.PN ---
- Subjective Encounter Start Date: 12/20/16 Encounter Start Time: 11:55 Subjective: pt is slightly better -: speech improved - Objective Resuscitation Status: Resuscitation Status FULL:Full Resuscitation Vital Signs & Weight: Vital Signs (12 hours) Temp Pulse Pulse Resp BP BP Pulse Ox 12/20/16 15:15 96.5 F L 70 20 101/76 97 12/20/16 14:05 70 18 108/85 97 12/20/16 13:30 105/82 12/20/16 13:15 114/77 12/20/16 12:45 113/83 12/20/16 12:30 104/79 12/20/16 12:15 113/75 12/20/16 12:00 75 20 113/81 99 12/20/16 11:48 97.4 F L 80 20 122/90 93 L 12/20/16 08:35 101 H 109/85 12/20/16 08:00 97.0 F L 76 20 127/79 98 12/20/16 06:36 99 12/20/16 05:28 99 12/20/16 04:00 98.3 F 73 22 H 101/71 99 Pulse Ox 12/20/16 15:15 12/20/16 14:05 12/20/16 13:30 12/20/16 13:15 12/20/16 12:45 12/20/16 12:30 12/20/16 12:15 12/20/16 12:00 12/20/16 11:48 12/20/16 08:35 98 12/20/16 08:00 12/20/16 06:36 12/20/16 05:28 12/20/16 04:00 Weight Admit Weight 297 lb Weight 297 lb I&O: 12/19/16 12/20/16 12/21/16 06:59 06:59 06:59 Intake Total 1310 650 Output Total 600 Balance 1310 50 Result Diagrams: 12/19/16 09:49 12/20/16 05:17 Phys Exam - Physical Examination HEENT: PERRLA, moist MMs Neck: no nodes Respiratory: no wheezing, no rales, no rhonchi Cardiovascular: RRR, no significant murmur, no rub Gastrointestinal: soft, non-tender, no distention, positive bowel sounds Musculoskeletal: pulses present Neurological: non-focal, normal sensation left HP aphasia improved Skin: no rash Dx/Plan (1) NNEKA (acute kidney injury) Code(s): N17.9 - ACUTE KIDNEY FAILURE, UNSPECIFIED Status: Acute Comment: Low volume IVF's, avoid nephrotoxic meds and contrast, repeat creatinine in am (2) Acute left hemiparesis Code(s): G81.94 - HEMIPLEGIA, UNSPECIFIED AFFECTING LEFT NONDOMINANT SIDE Status: Acute Comment: Secondary to #1, PT/OT (3) CVA (cerebral vascular accident) Code(s): I63.9 - CEREBRAL INFARCTION, UNSPECIFIED Status: Acute Qualifiers: Laterality of affected vessel: right Comment: Continue ASA 300mg [place] daily, general stroke protocol, Lipitor 40mg HS (4) Dysphagia Code(s): R13.10 - DYSPHAGIA, UNSPECIFIED Status: Acute Qualifiers: Dysphagia type: oropharyngeal phase Qualified Code(s): R13.12 - Dysphagia, oropharyngeal phase Comment: ST restricting po intake due to high aspiration risk, reassess in 24h (5) Expressive aphasia Code(s): R47.01 - APHASIA Status: Acute (6) Acute on chronic systolic (congestive) heart failure Code(s): I50.23 - ACUTE ON CHRONIC SYSTOLIC (CONGESTIVE) HEART FAILURE Status : Acute Comment: Improved, continue Lasix 20mg IV q12h, may transition to po Lasix in 24h (7) HTN (hypertension) Code(s): I10 - ESSENTIAL (PRIMARY) HYPERTENSION Status: Chronic Qualifiers: Hypertension type: essential hypertension Qualified Code(s): I10 - Essential (primary) hypertension Comment: controlled (8) Morbid obesity Code(s): E66.01 - MORBID (SEVERE) OBESITY DUE TO EXCESS CALORIES Status: Chronic (9) Non-ischemic cardiomyopathy Code(s): I42.9 - CARDIOMYOPATHY, UNSPECIFIED Status: Chronic Comment: EF 10- 15%, continue Lisinopril 10mg daily, AICD/pacer in place (10) Hyponatremia Code(s): E87.1 - HYPO-OSMOLALITY AND HYPONATREMIA Status: Acute Comment: mild, recheck Na+ level in am (11) Aphasia Code(s): R47.01 - APHASIA Status: Acute - Plan pt for PEG tube placement -: monitor neuro status * .
--- NOTE | 2016-12-20 15:42 | PDOC.CTH ---
<Yolanda Piña - Last Filed: 12/20/16 15:37> Cardiology Progress Note - Subjective The pt was seen and examined. No overnight events. No cardiac complaints. She underwent EGD and PEG tube placement, which was unsuccess and needs surgical PEG tube placement. Severe aphasia. - Objective Vital Signs Temp Pulse Pulse Resp BP BP Pulse Ox 12/20/16 15:15 96.5 F L 70 20 101/76 97 12/20/16 14:05 70 18 108/85 97 12/20/16 13:30 105/82 12/20/16 13:15 114/77 12/20/16 12:45 113/83 12/20/16 12:30 104/79 12/20/16 12:15 113/75 12/20/16 12:00 75 20 113/81 99 12/20/16 11:48 97.4 F L 80 20 122/90 93 L 12/20/16 08:35 101 H 109/85 12/20/16 08:00 97.0 F L 76 20 127/79 98 12/20/16 06:36 99 12/20/16 05:28 99 12/20/16 04:00 98.3 F 73 22 H 101/71 99 Pulse Ox 12/20/16 15:15 12/20/16 14:05 12/20/16 13:30 12/20/16 13:15 12/20/16 12:45 12/20/16 12:30 12/20/16 12:15 12/20/16 12:00 12/20/16 11:48 12/20/16 08:35 98 12/20/16 08:00 12/20/16 06:36 12/20/16 05:28 12/20/16 04:00 Admit Weight 297 lb Weight 297 lb 12/19/16 12/20/16 12/21/16 06:59 06:59 06:59 Intake Total 1310 650 Output Total 600 Balance 1310 50 - Physical Examination General/Neuro: other: (alerted to her name) Lungs: CTA (diminished at bases) Heart: RRR Extremities: other: (No edemas) - Telemetry Telemetry Rhythm: A paced - Labs Result Diagrams: 12/19/16 09:49 12/20/16 05:17 - Assessment/Plan 1. Rt CVA with Lt side weakness - according to nurse, the pt is more alarted today; on ASA 300mg [place] daily, general stroke protocol, Lipitor 40mg HS; managed by neurologists. 2. Non-ischemic cardiomyopathy - EF 10-15%, Bi-V AICD in place; 3. Acute on chronic systolic heart failure - stable with current medication 4. HTN - well controlled with current medication 5. NNEKA - stable; cont. NS 50m;/h; 6. Dysphagia - NPO at this moment; no success PEG tube placement and need surgical PEG tube placement 7. Dyslipidemia - on Statin med; MAR reviewed Review of Systems - Review of Systems Constitutional: reports: no symptoms reported EENTM: reports: no symptoms reported Respiratory: reports: no symptoms reported Cardiac (ROS): reports: no symptoms reported ABD/GI: reports: no symptoms reported : reports: no symptoms reported Musculoskeletal: reports: no symptoms reported <Nilam John - Last Filed: 12/20/16 22:07> Cardiology Progress Note - Objective Vital Signs Temp Pulse Resp BP Pulse Ox 12/20/16 19:20 97.4 F L 71 14 98 12/20/16 18:00 70 20 117/88 99 12/20/16 15:15 96.5 F L 70 20 101/76 97 12/20/16 14:05 70 18 108/85 97 12/20/16 13:30 105/82 12/20/16 13:15 114/77 12/20/16 12:45 113/83 12/20/16 12:30 104/79 12/20/16 12:15 113/75 12/20/16 12:00 75 20 113/81 99 12/20/16 11:48 97.4 F L 80 20 122/90 93 L Admit Weight 297 lb Weight 297 lb 12/19/16 12/20/16 12/21/16 06:59 06:59 06:59 Intake Total 1310 650 378 Output Total 600 Balance 1310 50 378 - Labs Result Diagrams: 12/19/16 09:49 12/20/16 05:17 - Assessment/Plan Pt. seen and eval. by me. I agree with the A/P by the [employer]. Little overall change.
[2016-12-20] MEDS: Atorvastatin Calcium 40 MG TAB PO SCH (21:00)
[2016-12-21] MEDS: Aspirin 300 MG Suppository PR SCH (09:36)
[2016-12-21] MEDS: levETIRAcetam In NaCl (Iso-Os) 1,000 MG in Premix Bag 1 BAG IVPB SCH ×4 (09:49→20:47)
[2016-12-21] MEDS: Famotidine/PF 20 mg/2ml Vial SLOW IVP SCH ×2 (09:50→20:38)
[2016-12-21] MEDS: Sodium Chloride 0.9% 1,000 ML IV SCH (09:51)
--- NOTE | 2016-12-21 11:06 | PDOC.CTH ---
<Yolanda Piña - Last Filed: 12/21/16 11:02> Cardiology Progress Note - Subjective The pt was seen and examined. No overnight events. No cardiac complaints. The pt can follow commands better than yesterday. Now on Pureed diet with thicken fluid. No wet cough after taking fluid this time - Objective Vital Signs Temp Pulse Resp BP Pulse Ox 12/21/16 08:00 97.9 F 71 20 99 12/21/16 07:04 97.9 F 71 20 108/81 99 12/21/16 04:00 97.9 F 70 20 122/94 H 98 12/21/16 00:00 97.6 F 73 18 104/73 96 Admit Weight 297 lb Weight 297 lb 12/20/16 12/21/16 12/22/16 06:59 06:59 06:59 Intake Total 650 1023 Output Total 600 Balance 50 1023 - Physical Examination General/Neuro: alert & oriented x3 Neck: no JVD present Lungs: CTA Heart: other: (Irregular) Extremities: other: (swelling) - Telemetry Telemetry Rhythm: AV paced - Labs Result Diagrams: 12/19/16 09:49 12/20/16 05:17 - Assessment/Plan 1. Rt CVA with Lt side weakness - More alerted and follow commands; small movement in her Lt toes with command, but no movement at RUE. Changed ASA 300mg SD to 325mg PO daily; on Lipitor 40mg HS; f/u by neurologists. 2. Non-ischemic cardiomyopathy - EF 10-15%, Bi-V AICD in place; 3. Acute on chronic systolic heart failure - stable with current medication 4. HTN - well controlled with current medication 5. NNEKA - stable; 6. Dysphagia - Pureed diet with thicken fluid; 7. Dyslipidemia - on Statin med; MAR reviewed Review of Systems - Review of Systems Constitutional: reports: no symptoms reported EENTM: reports: no symptoms reported Respiratory: reports: no symptoms reported Cardiac (ROS): reports: no symptoms reported ABD/GI: reports: no symptoms reported : reports: no symptoms reported <Nilam John - Last Filed: 12/21/16 17:31> Cardiology Progress Note - Objective Vital Signs Temp Pulse Pulse Pulse Resp BP BP 12/21/16 16:17 12/21/16 15:05 99 F 73 16 12/21/16 14:20 79 95 119/84 115/85 12/21/16 11:15 97.5 F L 70 16 12/21/16 08:00 97.9 F 71 20 12/21/16 07:04 97.9 F 71 20 BP Pulse Ox 12/21/16 16:17 99 12/21/16 15:05 101/96 H 99 12/21/16 14:20 12/21/16 11:15 115/90 96 12/21/16 08:00 99 12/21/16 07:04 108/81 99 Admit Weight 297 lb Weight 297 lb 12/20/16 12/21/16 12/22/16 06:59 06:59 06:59 Intake Total 650 1023 Output Total 600 Balance 50 1023 - Labs Result Diagrams: 12/19/16 09:49 12/20/16 05:17 - Assessment/Plan Pt. seen and eval. I agree with the A/P by the AIR BREAKER OPERATOR. Pt. is at high risk for aspiration PNA. Overall cardiac status is stable with severe CMY,s/p AICD.
--- NOTE | 2016-12-21 13:13 | PDOC.PN ---
- Subjective Encounter Start Date: 12/21/16 Encounter Start Time: 13:11 Patient seen at bedside. No overnight events, neurologically mildly improved. - Objective Resuscitation Status: Resuscitation Status FULL:Full Resuscitation Vital Signs & Weight: Vital Signs (12 hours) Temp Pulse Resp BP Pulse Ox 12/21/16 11:15 97.5 F L 70 16 115/90 96 12/21/16 08:00 97.9 F 71 20 99 12/21/16 07:04 97.9 F 71 20 108/81 99 12/21/16 04:00 97.9 F 70 20 122/94 H 98 Weight Admit Weight 297 lb Weight 297 lb I&O: 12/20/16 12/21/16 12/22/16 06:59 06:59 06:59 Intake Total 650 1023 Output Total 600 Balance 50 1023 Result Diagrams: 12/19/16 09:49 12/20/16 05:17 Phys Exam - Physical Examination Constitutional: NAD Obese HEENT: moist MMs Neck: no JVD Respiratory: no wheezing Cardiovascular: RRR Gastrointestinal: soft Musculoskeletal: pulses present left hemiparesis, Dx/Plan (1) Acute left hemiparesis Code(s): G81.94 - HEMIPLEGIA, UNSPECIFIED AFFECTING LEFT NONDOMINANT SIDE Status: Acute Comment: Secondary to #1, PT/OT (2) CVA (cerebral vascular accident) Code(s): I63.9 - CEREBRAL INFARCTION, UNSPECIFIED Status: Acute Qualifiers: Laterality of affected vessel: right (3) Dysphagia Code(s): R13.10 - DYSPHAGIA, UNSPECIFIED Status: Acute Qualifiers: Dysphagia type: oropharyngeal phase Qualified Code(s): R13.12 - Dysphagia, oropharyngeal phase (4) HTN (hypertension) Code(s): I10 - ESSENTIAL (PRIMARY) HYPERTENSION Status: Chronic Qualifiers: Hypertension type: essential hypertension Qualified Code(s): I10 - Essential (primary) hypertension Comment: controlled (5) Morbid obesity Code(s): E66.01 - MORBID (SEVERE) OBESITY DUE TO EXCESS CALORIES Status: Chronic - Plan cont current plan of care, PT/OT, social worker psychiatric, DVT proph w/SCDs * Change ASA to PO ( done by cardiology). * Statin * Unable to place PEG due to difficult procedure (please see op note). Poor surgical candidate due to low EF, obesity for surgical placement of PEG per GS. Spoke with Speech Therapy today. At this time the patient is refusing a dobhoff. May not be able to perform a MBS due to body habitus as well as unable to perform if she is silently aspirating. ST spoke with the patient at bedside and the patient is comfortable with taking a modified diet with aspiration risk. I spoke with the patient at bedside about the risks of aspiration. At this time she understands that she is a high risk surgical patient but wants to continue to eat while knowing and understanding the risks of aspiration. Will proceed with modified diet with aspiration risks. * Continue Cardiac meds * CM for dispostion.
[2016-12-21] MEDS: Atorvastatin Calcium 40 MG TAB PO SCH (20:38)
[2016-12-22] MEDS ORDERED: Diabetic Tussin 200 MG/10 ML UDCUP PO PRN (07:06)
[2016-12-22] MEDS ORDERED: Senokot 8.6 MG TAB PO PRN (07:06)
[2016-12-22] MEDS ORDERED: Eucerin (Mineral Oil/Petrolatum,White) 30 gm Jar TOP PRN (07:06)
[2016-12-22] MEDS ORDERED: Loperamide HCl 2 MG CAP PO PRN (07:06)
[2016-12-22] MEDS ORDERED: Milk Of Magnesia 30 ML UDCUP PO PRN (07:06)
[2016-12-22] MEDS ORDERED: Sodium Chloride 0.65% Nasal 44 ML BOT EA NARE PRN (07:06)
[2016-12-22] MEDS ORDERED: Artificial Tears 18 DROP/0.9 ML EA EYE PRN (07:06)
[2016-12-22] MEDS ORDERED: Acetaminophen 325 MG TAB PO PRN (07:06)
[2016-12-22] MEDS ORDERED: Mag-Al 1200 mg/1200 mg/30 ML UDCUP PO PRN (07:06)
[2016-12-22 08:22] LABS: ALT (SGPT) 14 U/L (8-55); AST (SGOT) 25 U/L (5-34); Alkaline Phosphatase 266 U/L (40-150); Anion Gap 17 mmol/L (10-20); BUN (Urea Nitrogen) 32 mg/dL (7.0-18.7); Bilirubin, Total 1.9 mg/dL (0.2-1.2); Calc. Creatinine Clearance 109 mL/min (70-130); Calcium 9.4 mg/dL (7.8-10.44); Carbon Dioxide 18 mmol/L (22-29); Chloride 124 mmol/L (98-107); Estimated GFR-MDRD 50; Globulin 5.1 g/dL (2.4-3.5); Protein, Total 8.1 g/dL (6.0-8.3)
--- NOTE | 2016-12-22 08:38 | PDOC.CTH ---
<Yolanda Piña - Last Filed: 12/22/16 08:38> Cardiology Progress Note - Subjective The pt was seen and examined. No overnight events. No cardiac complaints. She is alerted and oriented x3 today. However, she is on NPE, per nurse, she kept food in her month and could not swallow well. - Objective Vital Signs Temp Pulse Resp BP BP Pulse Ox 12/22/16 08:00 97.5 F L 78 18 110/75 97 12/22/16 04:10 97.9 F 70 18 117/86 95 12/22/16 00:05 98.8 F 65 20 111/72 97 Admit Weight 297 lb Weight 299 lb 1.6 oz 12/21/16 12/22/16 12/23/16 06:59 06:59 06:59 Intake Total 1023 1415 Balance 1023 1415 - Physical Examination General/Neuro: alert & oriented x3 Neck: no JVD present Lungs: other: (diminished at bases) Abdomen: soft Extremities: other: (No edemas) - Telemetry Telemetry Rhythm: AV paced - Labs Result Diagrams: 12/19/16 09:49 12/22/16 07:52 - Assessment/Plan 1. Rt CVA with Lt side weakness - She is alerted, oriented x3, and follow commands; still minimal movement in her Lt toes with command, but no movement at RUE. Changed ASA back to 300mg [place] due to unable to swallow. f/u by neurologists. 2. Non-ischemic cardiomyopathy - EF 10-15%, Bi-V AICD in place; Reevaluate with another Echo 3. Acute on chronic systolic heart failure - stable with current medication 4. HTN - well controlled with current medication 5. NNEKA - stable; 6. Dysphagia - NPO due to unable to swallow and holding her food in her month. 7. Dyslipidemia - on Statin med; MAR reviewed Review of Systems - Review of Systems Constitutional: reports: no symptoms reported EENTM: reports: no symptoms reported Respiratory: reports: no symptoms reported Cardiac (ROS): reports: no symptoms reported ABD/GI: reports: no symptoms reported : reports: no symptoms reported Musculoskeletal: reports: no symptoms reported <Nilam John - Last Filed: 12/22/16 10:59> Cardiology Progress Note - Objective Vital Signs Temp Pulse Resp BP BP Pulse Ox 12/22/16 09:23 78 12/22/16 08:00 97.5 F L 78 18 110/75 97 12/22/16 04:10 97.9 F 70 18 117/86 95 12/22/16 00:05 98.8 F 65 20 111/72 97 Admit Weight 297 lb Weight 299 lb 1.6 oz 12/21/16 12/22/16 12/23/16 06:59 06:59 06:59 Intake Total 1023 1415 Balance 1023 1415 - Labs Result Diagrams: 12/22/16 07:52 12/22/16 07:52 - Assessment/Plan pt. was seen and eval. by me. i agree with the A/P by the REDUCTION FURNACE OPERATOR. Since she likely needs asurgically placed feeding tube s/p CVA, I will review another echo to see if the LV function has improved. It is not unusual for the EF to deteriorate acutely s/p CVA. If the Ef is improving then she may be a reasonable candidate for anesthesia and surgery for a feeding tube. If she continues to try to eat then I am afraid she will develop aspiration PNA.
[2016-12-22] MEDS ORDERED: Aspirin 325 mg Enteric Coated Tablet PO SCH (09:00)
[2016-12-22] MEDS ORDERED: Aspirin 325 MG TAB PO SCH (09:00)
[2016-12-22] MEDS: Aspirin 300 MG Suppository PR SCH (09:21)
[2016-12-22] MEDS: Famotidine 20 MG TAB PO SCH ×2 (09:23→20:34)
[2016-12-22] MEDS: Lisinopril 2.5 MG TAB PO SCH (09:23)
[2016-12-22] MEDS: Carvedilol 3.125 MG TAB PO SCH ×2 (09:23→20:34)
--- NOTE | 2016-12-22 09:37 | PDOC.PN ---
- Subjective Encounter Start Date: 12/22/16 Encounter Start Time: 07:20 -: old records requested/rev pt is not safe for any PO intake, lying flat, no fever Patient seen and examined. No overnight events - Objective Resuscitation Status: Resuscitation Status FULL:Full Resuscitation MAR Reviewed: Yes Vital Signs & Weight: Vital Signs (12 hours) Temp Pulse Resp BP BP Pulse Ox 12/22/16 08:00 97.5 F L 78 18 110/75 97 12/22/16 04:10 97.9 F 70 18 117/86 95 12/22/16 00:05 98.8 F 65 20 111/72 97 Weight Admit Weight 297 lb Weight 299 lb 1.6 oz I&O: 12/21/16 12/22/16 12/23/16 06:59 06:59 06:59 Intake Total 1023 1415 Balance 1023 1415 Result Diagrams: 12/19/16 09:49 12/22/16 07:52 Radiology Reviewed by me: Yes EKG Reviewed by me: Yes Phys Exam - Physical Examination Constitutional: NAD HEENT: PERRLA, moist MMs, sclera anicteric Neck: no JVD, supple Respiratory: no wheezing, no rales, no rhonchi Cardiovascular: RRR, no significant murmur, no rub Gastrointestinal: soft, non-tender, no distention, positive bowel sounds obesity+ Musculoskeletal: no edema, pulses present left side hemiplegia, aphasia, dysphagia Lymphatic: no nodes Psychiatric: normal affect, A&O x 3 Skin: no rash, normal turgor Dx/Plan (1) Acute ischemic right middle cerebral artery (MCA) stroke Code(s): I63.511 - CEREB INFRC D/T UNSP OCCLS OR STENOS OF RIGHT MID CEREB ART Status: Acute (2) Abnormal blood electrolyte level Code(s): E87.8 - OTH DISORDERS OF ELECTROLYTE AND FLUID BALANCE, NEC Status: Acute (3) Acute kidney failure Status: Acute (4) Oropharyngeal dysphagia Code(s): R13.12 - DYSPHAGIA, OROPHARYNGEAL PHASE Status: Acute (5) Dyslipidemia Code(s): E78.5 - HYPERLIPIDEMIA, UNSPECIFIED Status: Chronic (6) HTN (hypertension) Code(s): I10 - ESSENTIAL (PRIMARY) HYPERTENSION Status: Chronic Qualifiers: Hypertension type: essential hypertension Qualified Code(s): I10 - Essential (primary) hypertension Comment: controlled (7) Morbid obesity with BMI of 50.0-59.9, adult Code(s): E66.01 - MORBID (SEVERE) OBESITY DUE TO EXCESS CALORIES; Z68.43 - BODY MASS INDEX (BMI) 50-59.9 , ADULT Status: Chronic (8) Non-ischemic cardiomyopathy Code(s): I42.9 - CARDIOMYOPATHY, UNSPECIFIED Status: Chronic Comment: - Plan cont current plan of care, PT/OT, manager social responsibility, speech therapy * medication reviewed as below * symptomatic treatment. * pt is NPO, today will do modified barrium swallow, spoke with speech therapy * will change ivf to dex with water at 50 ml per hour * will repeat labs tomorrow * her po intake is very limited * she is not ready for discharge to rehab yet * will monitor * without PEG, she is at risk for dehydration and readmission Review of Systems - Review of Systems Constitutional: negative: Fever, Chills, Sweats, Weakness, Malaise, Other Respiratory: negative: Cough, Dry, Shortness of Breath, Hemoptysis, SOB with Excertion, Pleuritic Pain, Sputum, Wheezing Cardiovascular: negative: Chest Pain, Palpitations, Orthopnea, Paroxysmal Noc. Dyspnea, Edema, Light Headedness, Other Gastrointestinal: negative: Nausea, Vomiting, Abdominal Pain, Diarrhea, Constipation, Melena, Hematochezia, Other Genitourinary: negative: Dysuria, Frequency, Incontinence, Hematuria, Retention , Other Musculoskeletal: negative: Neck Pain, Shoulder Pain, Arm Pain, Back Pain, Hand Pain, Leg Pain, Foot Pain, Other Skin: negative: Rash, Lesions, Donnell, Bruising, Other Neurological: Weakness, Change in Speech. negative: Numbness, Incoordination, Confusion, Seizures, Other - Medications/Allergies Allergies/Adverse Reactions: Allergies Allergy/AdvReac Type Severity Reaction Status Date / Time pear Allergy Verified 12/16/16 00:34 tomato Allergy Verified 12/15/16 20:02 Medications: Current Medications Acetaminophen (Tylenol) 650 mg [place] Q4H PRN PRN Reason: Headache/Fever or Mild Pain Acetaminophen (Tylenol) 650 mg PO Q4H PRN PRN Reason: Headache/Fever or Mild Pain Al Hydroxide/Mg Hydroxide (Maalox) 15 ml PO Q4H PRN PRN Reason: Heartburn or Indigestion Amiodarone HCl (Cordarone) 400 mg PO BID [facility] Last Admin: 12/21/16 20:38 Dose: 400 mg Artificial Tears (Tears Naturale) 0 drop EA EYE PRN PRN PRN Reason: Dry Eyes Aspirin (Aspirin) 300 mg [place] DAILY [facility] Atorvastatin Calcium (Lipitor) 40 mg PO HS [facility] Last Admin: 12/21/16 20:38 Dose: 40 mg Carvedilol (Coreg) 1.562 mg PO BID [facility] Famotidine (Pepcid) 20 mg PO BID [facility] Guaifenesin (Robitussin Sf) 200 mg PO Q4H PRN PRN Reason: Cough Hydralazine HCl (Apresoline) 10 mg SLOW IVP Q4H PRN PRN Reason: BP > 220/110 Dextrose/Water (D5w) 1,000 mls @ 50 mls/hr IV .Q20H [facility] Labetalol HCl (Normodyne) 20 mg SLOW IVP Q1H PRN PRN Reason: BP > 220/110 Lisinopril (Zestril) 1.25 mg PO DAILY [facility] Loperamide HCl (Imodium) 2 mg PO PRN PRN PRN Reason: Diarrhea/Loose Stools Magnesium Hydroxide (Milk Of Magnesium) 30 ml PO DAILYPRN PRN PRN Reason: Constipation Mineral Oil/White Petrolatum (Eucerin Cream) 0 gm TOP BIDPRN PRN PRN Reason: Dry Skin Ondansetron HCl (Zofran Odt) 4 mg PO Q6H PRN PRN Reason: Nausea/Vomiting Ondansetron HCl (Zofran) 4 mg IVP Q6H PRN PRN Reason: Nausea/Vomiting Senna (Senokot) 2 tab PO HSPRN PRN PRN Reason: Constipation Sodium Chloride (Flush - Normal Saline) 10 ml IVF Q12HR [facility] Last Admin: 12/21/16 20:47 Dose: 10 ml Sodium Chloride (Flush - Normal Saline) 10 ml IVF PRN PRN PRN Reason: Saline Flush Sodium Chloride ([place] Nasal [place] 0.65%) 0 ml EA NARE QIDPRN PRN PRN Reason: Nasal Congestion
[2016-12-22 09:39] LABS: Hematocrit 42.4 % (36.0-47.0); White Blood Cell (WBC) Count 6.1 thou/uL (4.8-10.8)
[2016-12-22 09:40] LABS: Band 4 % (5-11); Burr Cells MARKED = >16 cells (100X) (0-1/hpf); Neutrophil 61 % (42-75); Polychromasia MODERATE = 3-4 cells (100X) (0-2/hpf); Rouleaux Formation SLIGHT = 1-5 cells (100X) (None Seen)
[2016-12-22] MEDS: Dextrose 5% in Water 1,000 ML IV SCH (11:06)
--- NOTE | 2016-12-22 15:18 | RAD ---
MODIFIED BARIUM SWALLOW WITH SPEECH THERAPIST: Date: 12-22-16 History: 46-year-old female with dysphagia following cerebral infarction. I69.391 FINDINGS: There is delayed oral phase and delayed pharyngeal phase of swallowing with delayed swallowing naomy er. On the very first swallow with thin liquids, there is rapid premature free spillage into the shailesh leculae, then immediate penetration and aspiration into the trachea, eliciting a cough response, bef ore swallow initiation. Next, nectar, honey, and pudding were fed to the patient. On each of these t here is oral residue with delayed premature free spillage into the vallecula, and subsequent delayed initiation of swallow reflex. When swallow reflex is initiated, there is apparently adequate epiglo ttic inversion, but penetration and aspiration were seen after the third phase of oral residue spill ed into the valleculae. IMPRESSION: 1. Severe oral and pharyngeal dysphagia. 2. Penetration and aspiration. 3. Please see complete report by speech therapist. POS: MARCY
[2016-12-22] MEDS: Atorvastatin Calcium 40 MG TAB PO SCH (20:34)
[2016-12-23] MEDS: Dextrose 5% in Water 1,000 ML IV SCH (02:58)
[2016-12-23] MEDS: Carvedilol 3.125 MG TAB PO SCH ×2 (08:38→20:57)
[2016-12-23] MEDS: Famotidine 20 MG TAB PO SCH ×2 (08:39→20:57)
[2016-12-23] MEDS: Lisinopril 2.5 MG TAB PO SCH (08:39)
[2016-12-23] MEDS: Aspirin 300 MG Suppository PR SCH (08:39)
[2016-12-23 08:57] LABS: Hematocrit 43.2 % (36.0-47.0); Mean Platelet Volume 9.1 fL (7.4-10.4); Red Blood Cell (RBC) Count 4.97 mill/uL (4.20-5.40)
[2016-12-23 08:59] LABS: Anion Gap 18 mmol/L (10-20); BUN (Urea Nitrogen) 29 mg/dL (7.0-18.7); Calc. Creatinine Clearance 118 mL/min (70-130); Calcium 9.4 mg/dL (7.8-10.44); Carbon Dioxide 15 mmol/L (22-29); Estimated GFR-MDRD 55
[2016-12-23 09:02] LABS: Chloride 127 mmol/L (98-107)
[2016-12-23 09:22] LABS: Anisocytosis MODERATE=16-30 cells (100X) (0-5/hpf); Band 3 % (5-11); Burr Cells MODERATE= 6-15 cells (100X) (0-1/hpf); Neutrophil 66 % (42-75); Ovalocytes MODERATE= 6-15 cells (100X) (0-1/hpf); Polychromasia SLIGHT = 2-3 cells (100X) (0-2/hpf)
--- NOTE | 2016-12-23 09:44 | PDOC.CTH ---
<Yolanda Piña - Last Filed: 12/23/16 09:49> Cardiology Progress Note - Subjective The pt was seen and examined. No overnight events. No cardiac complaints. NPO at this moment for severe oral and pharyngeal dysphagia. - Objective Vital Signs Temp Pulse Resp BP Pulse Ox 12/23/16 08:39 84 12/23/16 07:18 96 F L 84 18 101/83 97 12/23/16 03:29 97.4 F L 72 20 110/84 97 12/22/16 23:27 97.3 F L 80 18 101/84 100 Admit Weight 297 lb Weight 296 lb 6.4 oz 12/22/16 12/23/16 12/24/16 06:59 06:59 06:59 Intake Total 1415 1220 Balance 1415 1220 - Physical Examination General/Neuro: alert & oriented x3 Neck: no JVD present Lungs: other: (diminished at bases) Heart: RRR, other: Abdomen: other: Extremities: other: (1+ edema in bilat foot) - Telemetry Telemetry Rhythm: AV paced - Labs Result Diagrams: 12/23/16 08:00 12/23/16 08:00 - Assessment/Plan 1. Rt CVA with Lt side weakness - She is alerted, oriented x3, and follow commands; still minimal movement in her Lt toes with command, but no movement at RUE. Changed ASA back to 300mg [place] due to unable to swallow. f/u by neurologists. 2. Non-ischemic cardiomyopathy - EF 10-15%, Bi-V AICD in place; Echo result is pending at this time 3. Acute on chronic systolic heart failure - stable with current medication 4. HTN - stable with no BP medication taken due to NPO; cont. monitor 5. NNEKA - stable; 6. Dysphagia - NPO due to severe oral an pharyngeal dysphargia verified by Modify swallowing eval yesterday 7. Dyslipidemia - Statin med is on hold due to NPO; MAR reviewed Review of Systems - Review of Systems Constitutional: reports: no symptoms reported EENTM: reports: no symptoms reported Respiratory: reports: no symptoms reported Cardiac (ROS): reports: no symptoms reported ABD/GI: reports: no symptoms reported : reports: no symptoms reported <Nilam John - Last Filed: 12/23/16 22:15> Cardiology Progress Note - Objective Vital Signs Temp Pulse Resp BP Pulse Ox 12/23/16 20:00 97.0 F L 72 22 H 94/57 L 96 12/23/16 15:40 97.5 F L 71 18 96/79 99 12/23/16 12:00 97.8 F 70 18 96/87 100 Admit Weight 297 lb Weight 296 lb 6.4 oz 12/22/16 12/23/16 12/24/16 06:59 06:59 06:59 Intake Total 1415 1220 580 Balance 1415 1220 580 - Labs Result Diagrams: 12/23/16 08:00 12/23/16 08:00 - Assessment/Plan Pt. seen and evaluated. The repeat echocardiogram continues to reveal a severe decrease in the LV funtion. EF is still around 20%. She is at moderate to severe risk due to the decreased EF but she has an AICD. For this type of procedure,to insert a feeding tube and the anesthesia required, she may be a reasonable candidate. Without a feeding tube she is at high risk of aspiration. There is no good option for her but she will need nutrition in order to survive.
--- NOTE | 2016-12-23 11:26 | PDOC.PN ---
- Subjective Encounter Start Date: 12/23/16 Encounter Start Time: 07:30 pt pulled out Ng tube and now she does not want another one. no fever - Objective Resuscitation Status: Resuscitation Status FULL:Full Resuscitation MAR Reviewed: Yes Vital Signs & Weight: Vital Signs (12 hours) Temp Pulse Resp BP Pulse Ox 12/23/16 08:39 84 12/23/16 08:00 96 F L 84 18 97 12/23/16 07:18 96 F L 84 18 101/83 97 12/23/16 03:29 97.4 F L 72 20 110/84 97 12/22/16 23:27 97.3 F L 80 18 101/84 100 Weight Admit Weight 297 lb Weight 296 lb 6.4 oz I&O: 12/22/16 12/23/16 12/24/16 06:59 06:59 06:59 Intake Total 1415 1220 Balance 1415 1220 Result Diagrams: 12/23/16 08:00 12/23/16 08:00 EKG Reviewed by me: Yes Phys Exam - Physical Examination Constitutional: NAD HEENT: PERRLA, moist MMs, sclera anicteric Neck: no JVD, supple Respiratory: no wheezing, no rales, no rhonchi Cardiovascular: RRR, no significant murmur, no rub Gastrointestinal: soft, non-tender, no distention, positive bowel sounds Musculoskeletal: no edema, pulses present left side hemiplegia Psychiatric: normal affect Skin: no rash, normal turgor Dx/Plan (1) Acute ischemic right middle cerebral artery (MCA) stroke Code(s): I63.511 - CEREB INFRC D/T UNSP OCCLS OR STENOS OF RIGHT MID CEREB ART Status: Acute (2) Abnormal blood electrolyte level Code(s): E87.8 - OTH DISORDERS OF ELECTROLYTE AND FLUID BALANCE, NEC Status: Acute (3) Acute kidney failure Status: Acute (4) Oropharyngeal dysphagia Code(s): R13.12 - DYSPHAGIA, OROPHARYNGEAL PHASE Status: Acute (5) Dyslipidemia Code(s): E78.5 - HYPERLIPIDEMIA, UNSPECIFIED Status: Chronic (6) HTN (hypertension) Code(s): I10 - ESSENTIAL (PRIMARY) HYPERTENSION Status: Chronic Qualifiers: Hypertension type: essential hypertension Qualified Code(s): I10 - Essential (primary) hypertension Comment: controlled (7) Morbid obesity with BMI of 50.0-59.9, adult Code(s): E66.01 - MORBID (SEVERE) OBESITY DUE TO EXCESS CALORIES; Z68.43 - BODY MASS INDEX (BMI) 50-59.9 , ADULT Status: Chronic (8) Non-ischemic cardiomyopathy Code(s): I42.9 - CARDIOMYOPATHY, UNSPECIFIED Status: Chronic Comment: - Plan cont current plan of care, PT/OT, social studies teacher, speech therapy * pt is not safe for any PO intake, she does not have any access for nutrition * will wait for echo result, and if cardio clear for surgical G- tube placement , then will notify Dr Ramos * without PEG/G-tube she is not safe for discharge * will continue Dex with water for hypernatremia * medication reviewed as below * symptomatic treatment. Review of Systems - Review of Systems ENT: negative: Ear Pain, Ear Discharge, Nose Pain, Nose Discharge, Nose Congestion, Mouth Pain, Mouth Swelling, Throat Pain, Throat Swelling, Other Respiratory: negative: Cough, Dry, Shortness of Breath, Hemoptysis, SOB with Excertion, Pleuritic Pain, Sputum, Wheezing Cardiovascular: negative: Chest Pain, Palpitations, Orthopnea, Paroxysmal Noc. Dyspnea, Edema, Light Headedness, Other Gastrointestinal: negative: Nausea, Vomiting, Abdominal Pain, Diarrhea, Constipation, Melena, Hematochezia, Other Genitourinary: negative: Dysuria, Frequency, Incontinence, Hematuria, Retention , Other Musculoskeletal: negative: Neck Pain, Shoulder Pain, Arm Pain, Back Pain, Hand Pain, Leg Pain, Foot Pain, Other - Medications/Allergies Allergies/Adverse Reactions: Allergies Allergy/AdvReac Type Severity Reaction Status Date / Time pear Allergy Verified 12/16/16 00:34 tomato Allergy Verified 12/15/16 20:02 Medications: Current Medications Acetaminophen (Tylenol) 650 mg [place] Q4H PRN PRN Reason: Headache/Fever or Mild Pain Acetaminophen (Tylenol) 650 mg PO Q4H PRN PRN Reason: Headache/Fever or Mild Pain Al Hydroxide/Mg Hydroxide (Maalox) 15 ml PO Q4H PRN PRN Reason: Heartburn or Indigestion Amiodarone HCl (Cordarone) 400 mg PO BID [facility] Last Admin: 12/23/16 08:38 Dose: Not Given Artificial Tears (Tears Naturale) 0 drop EA EYE PRN PRN PRN Reason: Dry Eyes Aspirin (Aspirin) 300 mg [place] DAILY [facility] Last Admin: 12/23/16 08:39 Dose: 300 mg Atorvastatin Calcium (Lipitor) 40 mg PO HS [facility] Last Admin: 12/22/16 20:34 Dose: Not Given Carvedilol (Coreg) 1.562 mg PO BID [facility] Last Admin: 12/23/16 08:38 Dose: Not Given Famotidine (Pepcid) 20 mg PO BID [facility] Last Admin: 12/23/16 08:39 Dose: Not Given Guaifenesin (Robitussin Sf) 200 mg PO Q4H PRN PRN Reason: Cough Hydralazine HCl (Apresoline) 10 mg SLOW IVP Q4H PRN PRN Reason: BP > 220/110 Dextrose/Water (D5w) 1,000 mls @ 50 mls/hr IV .Q20H [facility] Last Admin: 12/23/16 02:58 Dose: 1,000 mls Labetalol HCl (Normodyne) 20 mg SLOW IVP Q1H PRN PRN Reason: BP > 220/110 Lisinopril (Zestril) 1.25 mg PO DAILY [facility] Last Admin: 12/23/16 08:39 Dose: Not Given Loperamide HCl (Imodium) 2 mg PO PRN PRN PRN Reason: Diarrhea/Loose Stools Magnesium Hydroxide (Milk Of Magnesium) 30 ml PO DAILYPRN PRN PRN Reason: Constipation Mineral Oil/White Petrolatum (Eucerin Cream) 0 gm TOP BIDPRN PRN PRN Reason: Dry Skin Ondansetron HCl (Zofran Odt) 4 mg PO Q6H PRN PRN Reason: Nausea/Vomiting Ondansetron HCl (Zofran) 4 mg IVP Q6H PRN PRN Reason: Nausea/Vomiting Senna (Senokot) 2 tab PO HSPRN PRN PRN Reason: Constipation Sodium Chloride (Flush - Normal Saline) 10 ml IVF Q12HR [facility] Last Admin: 12/23/16 08:39 Dose: Not Given Sodium Chloride (Flush - Normal Saline) 10 ml IVF PRN PRN PRN Reason: Saline Flush Sodium Chloride ([place] Nasal [place] 0.65%) 0 ml EA NARE QIDPRN PRN PRN Reason: Nasal Congestion
[2016-12-23] MEDS: Acetaminophen 650 MG Suppository PR PRN (20:23)
[2016-12-23] MEDS: Atorvastatin Calcium 40 MG TAB PO SCH (20:57)
[2016-12-24] MEDS: Dextrose 5% in Water 1,000 ML IV SCH (03:09)
[2016-12-24] MEDS: Aspirin 300 MG Suppository PR SCH (09:25)
[2016-12-24] MEDS: Lisinopril 2.5 MG TAB PO SCH (09:36)
[2016-12-24] MEDS: Famotidine 20 MG TAB PO SCH ×2 (09:36→20:45)
[2016-12-24] MEDS: Carvedilol 3.125 MG TAB PO SCH ×2 (09:36→20:44)
--- NOTE | 2016-12-24 09:55 | PDOC.PN ---
- Subjective Encounter Start Date: 12/24/16 Encounter Start Time: 07:45 Patient seen and examined. No new complaints. No overnight events - Objective Resuscitation Status: Resuscitation Status FULL:Full Resuscitation MAR Reviewed: Yes Vital Signs & Weight: Vital Signs (12 hours) Temp Pulse Resp BP Pulse Ox 12/24/16 09:36 70 12/24/16 07:36 97.4 F L 70 16 102/81 99 12/24/16 04:18 97.6 F 72 22 H 108/80 95 12/23/16 23:32 97.0 F L 71 22 H 92/75 97 Weight Admit Weight 297 lb Weight 296 lb 6.4 oz I&O: 12/23/16 12/24/16 12/25/16 06:59 06:59 06:59 Intake Total 1220 880 Balance 1220 880 Result Diagrams: 12/23/16 08:00 12/23/16 08:00 Radiology Reviewed by me: Yes (echo noted) EKG Reviewed by me: Yes Phys Exam - Physical Examination Constitutional: NAD HEENT: PERRLA, moist MMs, sclera anicteric Neck: no JVD, supple Respiratory: no wheezing, no rales, no rhonchi Cardiovascular: RRR, no significant murmur, no rub Gastrointestinal: soft, non-tender, no distention, positive bowel sounds Musculoskeletal: no edema, pulses present left side hemiplegia, aphasia, dysphagia Lymphatic: no nodes Psychiatric: normal affect Skin: no rash, normal turgor Dx/Plan (1) Acute ischemic right middle cerebral artery (MCA) stroke Code(s): I63.511 - CEREB INFRC D/T UNSP OCCLS OR STENOS OF RIGHT MID CEREB ART Status: Acute (2) Abnormal blood electrolyte level Code(s): E87.8 - OTH DISORDERS OF ELECTROLYTE AND FLUID BALANCE, NEC Status: Acute (3) Acute kidney failure Status: Acute (4) Oropharyngeal dysphagia Code(s): R13.12 - DYSPHAGIA, OROPHARYNGEAL PHASE Status: Acute (5) Dyslipidemia Code(s): E78.5 - HYPERLIPIDEMIA, UNSPECIFIED Status: Chronic (6) HTN (hypertension) Code(s): I10 - ESSENTIAL (PRIMARY) HYPERTENSION Status: Chronic Qualifiers: Hypertension type: essential hypertension Qualified Code(s): I10 - Essential (primary) hypertension Comment: controlled (7) Morbid obesity with BMI of 50.0-59.9, adult Code(s): E66.01 - MORBID (SEVERE) OBESITY DUE TO EXCESS CALORIES; Z68.43 - BODY MASS INDEX (BMI) 50-59.9 , ADULT Status: Chronic (8) Non-ischemic cardiomyopathy Code(s): I42.9 - CARDIOMYOPATHY, UNSPECIFIED Status: Chronic Comment: - Plan cont current plan of care * I spoke with Dr Ramos for G-tube placement, she needs that to survive after this major stroke * cardiology cleared for anesthesia with moderate risk given her cardiomyopathy * medication reviewed as below * symptomatic treatment * currently No IV access and she pulled out peripheral IV and hard stick, she may not need IV access as long as she has access for oral intake * medication reviewed as below * symptomatic treatment. Review of Systems - Review of Systems ENT: negative: Ear Pain, Ear Discharge, Nose Pain, Nose Discharge, Nose Congestion, Mouth Pain, Mouth Swelling, Throat Pain, Throat Swelling, Other Respiratory: negative: Cough, Dry, Shortness of Breath, Hemoptysis, SOB with Excertion, Pleuritic Pain, Sputum, Wheezing Cardiovascular: negative: Chest Pain, Palpitations, Orthopnea, Paroxysmal Noc. Dyspnea, Edema, Light Headedness, Other Gastrointestinal: negative: Nausea, Vomiting, Abdominal Pain, Diarrhea, Constipation, Melena, Hematochezia, Other Genitourinary: negative: Dysuria, Frequency, Incontinence, Hematuria, Retention , Other Musculoskeletal: negative: Neck Pain, Shoulder Pain, Arm Pain, Back Pain, Hand Pain, Leg Pain, Foot Pain, Other - Medications/Allergies Allergies/Adverse Reactions: Allergies Allergy/AdvReac Type Severity Reaction Status Date / Time pear Allergy Verified 12/16/16 00:34 tomato Allergy Verified 12/15/16 20:02 Medications: Current Medications Acetaminophen (Tylenol) 650 mg [place] Q4H PRN PRN Reason: Headache/Fever or Mild Pain Last Admin: 12/23/16 20:23 Dose: 650 mg Acetaminophen (Tylenol) 650 mg PO Q4H PRN PRN Reason: Headache/Fever or Mild Pain Al Hydroxide/Mg Hydroxide (Maalox) 15 ml PO Q4H PRN PRN Reason: Heartburn or Indigestion Amiodarone HCl (Cordarone) 400 mg PO BID [facility] Last Admin: 12/24/16 09:36 Dose: Not Given Artificial Tears (Tears Naturale) 0 drop EA EYE PRN PRN PRN Reason: Dry Eyes Aspirin (Aspirin) 300 mg [place] DAILY [facility] Last Admin: 12/24/16 09:25 Dose: 300 mg Atorvastatin Calcium (Lipitor) 40 mg PO HS [facility] Last Admin: 12/23/16 20:57 Dose: Not Given Carvedilol (Coreg) 1.562 mg PO BID [facility] Last Admin: 12/24/16 09:36 Dose: Not Given Famotidine (Pepcid) 20 mg PO BID [facility] Last Admin: 12/24/16 09:36 Dose: Not Given Guaifenesin (Robitussin Sf) 200 mg PO Q4H PRN PRN Reason: Cough Hydralazine HCl (Apresoline) 10 mg SLOW IVP Q4H PRN PRN Reason: BP > 220/110 Dextrose/Water (D5w) 1,000 mls @ 50 mls/hr IV .Q20H [facility] Last Admin: 12/24/16 03:09 Dose: Not Given Labetalol HCl (Normodyne) 20 mg SLOW IVP Q1H PRN PRN Reason: BP > 220/110 Lisinopril (Zestril) 1.25 mg PO DAILY [facility] Last Admin: 12/24/16 09:36 Dose: Not Given Loperamide HCl (Imodium) 2 mg PO PRN PRN PRN Reason: Diarrhea/Loose Stools Magnesium Hydroxide (Milk Of Magnesium) 30 ml PO DAILYPRN PRN PRN Reason: Constipation Mineral Oil/White Petrolatum (Eucerin Cream) 0 gm TOP BIDPRN PRN PRN Reason: Dry Skin Ondansetron HCl (Zofran Odt) 4 mg PO Q6H PRN PRN Reason: Nausea/Vomiting Ondansetron HCl (Zofran) 4 mg IVP Q6H PRN PRN Reason: Nausea/Vomiting Senna (Senokot) 2 tab PO HSPRN PRN PRN Reason: Constipation Sodium Chloride (Flush - Normal Saline) 10 ml IVF Q12HR [facility] Last Admin: 12/24/16 09:37 Dose: Not Given Sodium Chloride (Flush - Normal Saline) 10 ml IVF PRN PRN PRN Reason: Saline Flush Sodium Chloride ([place] Nasal [place] 0.65%) 0 ml EA NARE QIDPRN PRN PRN Reason: Nasal Congestion
[2016-12-24 10:40] VITALS: BMI 50.8
--- NOTE | 2016-12-24 14:21 | CON ---
DATE OF CONSULTATION: 12/24/2016 CHIEF COMPLAINT: Dysphagia. HISTORY: This is a 46-year-old female, who admitted on 12/15/2016 with an acute CVA. She had a swa llow fall documenting severe pharyngeal dysphagia. An attempt was made to place a PEG on 12/20/[address] , [address] Dr. Lane unable to transilluminate and the procedure was aborted. PAST MEDICAL HISTORY: Morbid obesity, hypertension, atrial fibrillation, cardiomyopathy, peptic ulc er disease. PAST SURGICAL HISTORY: She had a craniotomy tympanoplasty, cardiac catheterization. MEDICATIONS: Amiodarone, carvedilol, Keppra, lisinopril, phenobarbital, potassium, spironolactone. ALLERGIES: TOMATOES and PEARS. FAMILY HISTORY: Heart disease. SOCIAL HISTORY: She lives in a nursing. She is disabled. PHYSICAL EXAMINATION: VITAL SIGNS: Temperature 97.5, pulse is 68 and blood pressure 107/90. GENERAL: She is awake, but has very slurred speech. HEENT: Otherwise, unremarkable. LUNGS: Clear. HEART: Regular rate and rhythm. ABDOMEN: Soft, nondistended. She has a well-healed surgical scar midline. When asked about it, floyd jerome said that she had emergency surgery, but did not recall what was done. I do not feel any masses o r hernias. EXTREMITIES: Unremarkable. ASSESSMENT: Severe dysphagia. PLAN: We will attempt to place PEG tube if unsuccessful, may require either laparoscopic or open ga strostomy placement. I have discussed the planned procedure as well as risk of bleeding, perforatio n of bowel. She understands and gives informed consent.
--- NOTE | 2016-12-24 14:34 | PDOC.CTH ---
Cardiology Progress Note - Subjective The pt was seen and examined. No overnight events. No cardiac complaints. At this time, she does not have any IV access since last night. - Objective Vital Signs Temp Pulse Pulse Pulse Resp BP BP 12/24/16 12:46 97.5 F L 12/24/16 12:08 68 18 12/24/16 11:11 65 68 107/90 104/70 12/24/16 09:36 70 12/24/16 07:36 97.4 F L 70 16 12/24/16 04:18 97.6 F 72 22 H BP Pulse Ox 12/24/16 12:46 12/24/16 12:08 104/70 97 12/24/16 11:11 12/24/16 09:36 12/24/16 07:36 102/81 99 12/24/16 04:18 108/80 95 Admit Weight 297 lb Weight 296 lb 6.4 oz 12/23/16 12/24/16 12/25/16 06:59 06:59 06:59 Intake Total 1220 880 Balance 1220 880 - Physical Examination General/Neuro: alert & oriented x3 Neck: no JVD present Lungs: other: (coase with wet cough) Abdomen: soft Extremities: other: (No edema) - Telemetry Telemetry Rhythm: AV paced - Labs Result Diagrams: 12/23/16 08:00 12/23/16 08:00 - Assessment/Plan 1. Rt CVA with Lt side weakness - She is alerted, oriented x3, and follow commands; still minimal movement in her Lt toes with command, but no movement at RUE. on ASA 300mg [place] due to NPO. f/u by neurologists. 2. Non-ischemic cardiomyopathy - EF 15-20% yesterday from 10-15%; Bi-V AICD in place; 3. Acute on chronic systolic heart failure - stable with current medication 4. HTN - stable with no BP medication taken due to NPO; cont. monitor 5. NNEKA - stable; 6. Dysphagia - surgically PEG tube placement tomorrow by Dr Ramos; Mod to severe risk due to the decreased EF but she has an AICD. NPO due to severe oral an pharyngeal dysphargia 7. Dyslipidemia - Statin med is on hold due to NPO; MAR reviewed Review of Systems Review of Systems - Review of Systems Constitutional: reports: no symptoms reported EENTM: reports: no symptoms reported Respiratory: reports: no symptoms reported Cardiac (ROS): reports: no symptoms reported ABD/GI: reports: other
[2016-12-24] MEDS: Atorvastatin Calcium 40 MG TAB PO SCH (20:44)
[2016-12-25] MEDS: Dextrose 5% in Water 1,000 ML IV SCH ×2 (02:55→15:11)
[2016-12-25] MEDS ORDERED: Fentanyl 100 MCG/2 ML VIAL ONE (10:32)
[2016-12-25] MEDS ORDERED: Midazolam HCl 2 mg/2 ml Vial ONE (10:32)
[2016-12-25] MEDS ORDERED: Ondansetron HCl/PF 4 MG/2 ML Vial ONE (10:50)
[2016-12-25] MEDS ORDERED: Dexamethasone 20 MG/5 ML VIAL ONE (10:50)
[2016-12-25] MEDS ORDERED: Propofol 200 MG/20 ML VIAL ONE (10:50)
[2016-12-25] MEDS ORDERED: Lidocaine 1% PF 5 ML VIAL ONE (10:50)
[2016-12-25] MEDS ORDERED: Succinylcholine Chloride 20 MG/ML 10 ml SYRINGE FS ONE (10:50)
--- NOTE | 2016-12-25 11:02 | PDOC.PN ---
- Subjective Encounter Start Date: 12/25/16 Encounter Start Time: 07:30 Patient seen and examined. No new complaints. No overnight events - Objective Resuscitation Status: Resuscitation Status FULL:Full Resuscitation MAR Reviewed: Yes Vital Signs & Weight: Vital Signs (12 hours) Temp Pulse Resp BP BP Pulse Ox 12/25/16 07:54 98.4 F 70 16 98/83 98 12/25/16 04:30 97.6 F 69 20 98/87 95 Weight Admit Weight 297 lb Weight 296 lb 6.4 oz I&O: 12/24/16 12/25/16 12/26/16 06:59 06:59 06:59 Intake Total 880 50 Balance 880 50 Result Diagrams: 12/23/16 08:00 12/23/16 08:00 EKG Reviewed by me: Yes Phys Exam - Physical Examination Constitutional: NAD HEENT: PERRLA, sclera anicteric dry MM Neck: no JVD, supple Respiratory: no wheezing, no rales, no rhonchi Cardiovascular: RRR, no significant murmur, no rub Gastrointestinal: soft, non-tender, no distention, positive bowel sounds Musculoskeletal: no edema, pulses present left hemiplegia, aphasia, dysphagia Psychiatric: normal affect, A&O x 3 Skin: no rash, normal turgor Dx/Plan (1) Acute ischemic right middle cerebral artery (MCA) stroke Code(s): I63.511 - CEREB INFRC D/T UNSP OCCLS OR STENOS OF RIGHT MID CEREB ART Status: Acute (2) Abnormal blood electrolyte level Code(s): E87.8 - OTH DISORDERS OF ELECTROLYTE AND FLUID BALANCE, NEC Status: Acute (3) Acute kidney failure Status: Acute (4) Oropharyngeal dysphagia Code(s): R13.12 - DYSPHAGIA, OROPHARYNGEAL PHASE Status: Acute (5) Dyslipidemia Code(s): E78.5 - HYPERLIPIDEMIA, UNSPECIFIED Status: Chronic (6) HTN (hypertension) Code(s): I10 - ESSENTIAL (PRIMARY) HYPERTENSION Status: Chronic Qualifiers: Hypertension type: essential hypertension Qualified Code(s): I10 - Essential (primary) hypertension Comment: controlled (7) Morbid obesity with BMI of 50.0-59.9, adult Code(s): E66.01 - MORBID (SEVERE) OBESITY DUE TO EXCESS CALORIES; Z68.43 - BODY MASS INDEX (BMI) 50-59.9 , ADULT Status: Chronic (8) Non-ischemic cardiomyopathy Code(s): I42.9 - CARDIOMYOPATHY, UNSPECIFIED Status: Chronic Comment: - Plan cont current plan of care, PT/OT, addiction social worker, speech therapy * pt is still NPO, unable to give orally * today plan for PEG and if not possible endoscopically then will be done surgically * once PEG placed, then will start using when advised * will repeat labs tomorrow * medication reviewed as below * symptomatic treatment. Review of Systems - Review of Systems ENT: negative: Ear Pain, Ear Discharge, Nose Pain, Nose Discharge, Nose Congestion, Mouth Pain, Mouth Swelling, Throat Pain, Throat Swelling, Other Respiratory: negative: Cough, Dry, Shortness of Breath, Hemoptysis, SOB with Excertion, Pleuritic Pain, Sputum, Wheezing Cardiovascular: negative: Chest Pain, Palpitations, Orthopnea, Paroxysmal Noc. Dyspnea, Edema, Light Headedness, Other Gastrointestinal: negative: Nausea, Vomiting, Abdominal Pain, Diarrhea, Constipation, Melena, Hematochezia, Other Genitourinary: negative: Dysuria, Frequency, Incontinence, Hematuria, Retention , Other - Medications/Allergies Allergies/Adverse Reactions: Allergies Allergy/AdvReac Type Severity Reaction Status Date / Time pear Allergy Verified 12/16/16 00:34 tomato Allergy Verified 12/15/16 20:02 Medications: Current Medications Acetaminophen (Tylenol) 650 mg [place] Q4H PRN PRN Reason: Headache/Fever or Mild Pain Last Admin: 12/23/16 20:23 Dose: 650 mg Acetaminophen (Tylenol) 650 mg PO Q4H PRN PRN Reason: Headache/Fever or Mild Pain Al Hydroxide/Mg Hydroxide (Maalox) 15 ml PO Q4H PRN PRN Reason: Heartburn or Indigestion Amiodarone HCl (Cordarone) 400 mg PO BID [facility] Last Admin: 12/24/16 20:44 Dose: Not Given Artificial Tears (Tears Naturale) 0 drop EA EYE PRN PRN PRN Reason: Dry Eyes Aspirin (Aspirin) 300 mg [place] DAILY [facility] Last Admin: 12/24/16 09:25 Dose: 300 mg Atorvastatin Calcium (Lipitor) 40 mg PO HS [facility] Last Admin: 12/24/16 20:44 Dose: Not Given Carvedilol (Coreg) 1.562 mg PO BID [facility] Last Admin: 12/24/16 20:44 Dose: Not Given Famotidine (Pepcid) 20 mg PO BID [facility] Last Admin: 12/24/16 20:45 Dose: Not Given Guaifenesin (Robitussin Sf) 200 mg PO Q4H PRN PRN Reason: Cough Hydralazine HCl (Apresoline) 10 mg SLOW IVP Q4H PRN PRN Reason: BP > 220/110 Dextrose/Water (D5w) 1,000 mls @ 50 mls/hr IV .Q20H [facility] Last Admin: 12/25/16 02:55 Dose: 1,000 mls Cefoxitin Sodium 2 gm/ Sodium (Chloride) 100 mls @ 100 mls/hr IVPB WILLCALL [facility] Stop: 12/25/16 13:16 Labetalol HCl (Normodyne) 20 mg SLOW IVP Q1H PRN PRN Reason: BP > 220/110 Lisinopril (Zestril) 1.25 mg PO DAILY [facility] Last Admin: 12/24/16 09:36 Dose: Not Given Loperamide HCl (Imodium) 2 mg PO PRN PRN PRN Reason: Diarrhea/Loose Stools Magnesium Hydroxide (Milk Of Magnesium) 30 ml PO DAILYPRN PRN PRN Reason: Constipation Mineral Oil/White Petrolatum (Eucerin Cream) 0 gm TOP BIDPRN PRN PRN Reason: Dry Skin Ondansetron HCl (Zofran Odt) 4 mg PO Q6H PRN PRN Reason: Nausea/Vomiting Ondansetron HCl (Zofran) 4 mg IVP Q6H PRN PRN Reason: Nausea/Vomiting Senna (Senokot) 2 tab PO HSPRN PRN PRN Reason: Constipation Sodium Chloride (Flush - Normal Saline) 10 ml IVF Q12HR [facility] Last Admin: 12/24/16 20:45 Dose: Not Given Sodium Chloride (Flush - Normal Saline) 10 ml IVF PRN PRN PRN Reason: Saline Flush Sodium Chloride ([place] Nasal [place] 0.65%) 0 ml EA NARE QIDPRN PRN PRN Reason: Nasal Congestion
[2016-12-25] MEDS: Aspirin 300 MG Suppository PR SCH (12:36)
[2016-12-25] MEDS: Carvedilol 3.125 MG TAB PO SCH ×2 (12:37→20:24)
[2016-12-25] MEDS: Famotidine 20 MG TAB PO SCH ×2 (12:37→20:24)
[2016-12-25] MEDS: Lisinopril 2.5 MG TAB PO SCH (12:37)
--- NOTE | 2016-12-25 13:24 | OP ---
PREOPERATIVE DIAGNOSIS: History of cerebrovascular accident with dysphagia. SURGEON: Bear Ramos M.D. PROCEDURE PERFORMED: Esophagogastroduodenoscopy with percutaneous endoscopic gastrostomy placement. INDICATIONS: The patient is a 46-year-old female who had a CVA, unable to swallow and needs access for feedings. FINDINGS: Placed in the anterior fundus. PROCEDURE IN DETAIL: After informed consent was obtained, the patient was taken to the operating ro om and given general endotracheal anesthesia. She was placed in steep reverse Trendelenburg positio n. The video endoscope was inserted under direct vision and advanced through the mouth through the esophagus into the stomach. The stomach was insufflated with air maximally. I was able to palpate and easily see the impression of the anterior stomach. An introducer needle was inserted and was ea sily visualized. The J-wire was threaded through this and grasped with a snare through the scope. The wire was then brought out through the mouth, connected to the gastrostomy tube, and then this wa s brought retrograde through the stomach through the anterior abdominal wall. The skin was incised with an 11-blade to facilitate delivery of the tube. The endoscope was then reinserted, and under d irect vision inspected. There was good placement, no bleeding. The skin flange was then inserted o ana luisa the tube to the skin level. Then, the clamp was attached. The tube was divided and the end cap placed. Sterile bandage applied. The patient tolerated the procedure well and transferred to [facility] in good condition.
--- NOTE | 2016-12-25 14:52 | PDOC.CTH ---
Cardiology Progress Note - Subjective pt. seen and eval. did well with placement of feeding tube from a cardiac standpoint.No significant change in cardiac status or overall condition. - ROS not able to obtain ROS - Objective Vital Signs Temp Pulse Resp BP BP Pulse Ox 12/25/16 12:37 70 12/25/16 08:15 98.4 F 70 16 98 12/25/16 07:54 98.4 F 70 16 98/83 98 12/25/16 04:30 97.6 F 69 20 98/87 95 Admit Weight 297 lb Weight 296 lb 6.4 oz 12/24/16 12/25/16 12/26/16 06:59 06:59 06:59 Intake Total 880 50 Balance 880 50 - Physical Examination Lungs: CTA Heart: PMI normal Abdomen: other: (feeding tube in place.) Other PE findings: s/p CVA. hemiparesis. - Labs Result Diagrams: 12/23/16 08:00 12/23/16 08:00 - Assessment/Plan 1. Rt CVA with Lt side weakness - She is alerted, oriented x3, and follow commands; still minimal movement in her Lt toes with command, but no movement at RUE. on ASA 300mg [place] due to NPO. f/u by neurologists. 2. Non-ischemic cardiomyopathy - EF 15-20% yesterday from 10-15%; Bi-V AICD in place; 3. Acute on chronic systolic heart failure - stable with current medication 4. HTN - stable with no BP medication taken due to NPO; cont. monitor 5. NNEKA - stable; 6. Dysphagia - surgically PEG tube placed by Dr Ramos; Mod to severe risk due to the decreased EF but she has an AICD. NPO due to severe oral an pharyngeal dysphargia 7. Dyslipidemia - Statin med is on hold due to NPO; MAR reviewed
[2016-12-25] MEDS: cefTRIAXone\\ROCEPHIN 1 GM in Sodium Chloride 0.9% 100 ML IVPB SCH (15:10)
[2016-12-25 16:40] LABS: Bilirubin Small (Negative); Blood, Urine Large (Negative); Glucose, Urine (Dipstick) Negative (Negative); Ketone, Urine Negative (Negative); Nitrite Negative (Negative); Protein, Urine (Dipstick) 100 mg/dL (Neg-Trace)
[2016-12-25 16:41] LABS: Bacteria/HPF None Seen HPF (None Seen)
[2016-12-25 16:57] LABS: Hyaline Casts/LPF 4-6 HYALINE CAST LPF (0-3 Hyaline)
[2016-12-25] MEDS: Acetaminophen 650 MG Suppository PR PRN (20:23)
[2016-12-25] MEDS: Atorvastatin Calcium 40 MG TAB PO SCH (20:23)
--- NOTE | 2016-12-26 00:14 | PDOC.EVN ---
Event Note - Event Note Event Note: RN called - Pt has urinary retention with bladder scan > [address] anderson catheter.
[2016-12-26 06:43] LABS: #Lymphocytes 0.8 thou/uL (1.20-3.40); #Monocytes 0.3 thou/uL (0.11-0.59); #Neutrophils 5.5 thou/uL (1.40-6.50); %Basophils 0.1 % (0.0-1.0); %Eosinophils 0.2 % (0.0-10.0); %Lymphocytes 12.4 % (21.0-51.0); Anisocytosis MODERATE=16-30 cells (100X) (0-5/hpf); Elliptocytes SLIGHT = 2-5 cells (100X) (0-1/hpf); Hematocrit 46.5 % (36.0-47.0); Mean Platelet Volume 10.2 fL (7.4-10.4); Neutrophil 85 % (42-75); Polychromasia SLIGHT = 2-3 cells (100X) (0-2/hpf); Red Blood Cell (RBC) Count 5.18 mill/uL (4.20-5.40); Target Cells SLIGHT = 2-5 cells (100X) (0-1/hpf); White Blood Cell (WBC) Count 6.7 thou/uL (4.8-10.8)
[2016-12-26 06:50] LABS: AST (SGOT) 40 U/L (5-34); Anion Gap 19 mmol/L (10-20); Bilirubin, Total 1.9 mg/dL (0.2-1.2); Calc. Creatinine Clearance 111 mL/min (70-130); Calcium 9.5 mg/dL (7.8-10.44); Carbon Dioxide 14 mmol/L (22-29); Chloride 127 mmol/L (98-107); Estimated GFR-MDRD 51; Globulin 5.6 g/dL (2.4-3.5); Protein, Total 8.4 g/dL (6.0-8.3)
[2016-12-26 07:02] LABS: ALT (SGPT) 16 U/L (8-55); Alkaline Phosphatase 297 U/L (40-150); BUN (Urea Nitrogen) 37 mg/dL (7.0-18.7)
[2016-12-26] MEDS: Lisinopril 2.5 MG TAB PO SCH (09:30)
[2016-12-26] MEDS: Carvedilol 3.125 MG TAB PO SCH ×2 (09:31→21:45)
[2016-12-26] MEDS: Aspirin 300 MG Suppository PR SCH (09:32)
[2016-12-26] MEDS: Famotidine 20 MG TAB PO SCH ×2 (09:32→21:44)
[2016-12-26] MEDS: Enoxaparin Sodium 40 MG/0.4 ML SYRINGE SC SCH (09:33)
--- NOTE | 2016-12-26 09:59 | PDOC.PN ---
- Subjective Encounter Start Date: 12/26/16 Encounter Start Time: 07:00 pt is tolerating tube feeding, no fever, has urinary retention required anderson - Objective Resuscitation Status: Resuscitation Status FULL:Full Resuscitation MAR Reviewed: Yes Vital Signs & Weight: Vital Signs (12 hours) Temp Pulse Resp BP Pulse Ox 12/26/16 09:30 67 12/26/16 09:28 97.4 F L 67 16 105/92 H 98 12/26/16 03:56 97.5 F L 72 16 104/88 94 L 12/26/16 00:01 97.4 F L 69 16 110/94 H 98 Weight Admit Weight 297 lb Weight 296 lb 6.4 oz I&O: 12/25/16 12/26/16 12/27/16 06:59 06:59 06:59 Intake Total 50 1325 Output Total 920 Balance 50 405 Result Diagrams: 12/26/16 06:04 12/26/16 06:04 EKG Reviewed by me: Yes Phys Exam - Physical Examination Constitutional: NAD HEENT: PERRLA, moist MMs, sclera anicteric Neck: no JVD, supple Respiratory: no wheezing, no rales, no rhonchi Cardiovascular: RRR, no significant murmur, no rub Gastrointestinal: soft, non-tender, no distention, positive bowel sounds Musculoskeletal: no edema, pulses present left side hemiplegia, aphasia, dysphagia Psychiatric: normal affect, A&O x 3 Skin: no rash, normal turgor Dx/Plan (1) Acute ischemic right middle cerebral artery (MCA) stroke Code(s): I63.511 - CEREB INFRC D/T UNSP OCCLS OR STENOS OF RIGHT MID CEREB ART Status: Acute (2) Abnormal blood electrolyte level Code(s): E87.8 - OTH DISORDERS OF ELECTROLYTE AND FLUID BALANCE, NEC Status: Acute (3) Acute kidney failure Status: Acute (4) Oropharyngeal dysphagia Code(s): R13.12 - DYSPHAGIA, OROPHARYNGEAL PHASE Status: Acute (5) Dyslipidemia Code(s): E78.5 - HYPERLIPIDEMIA, UNSPECIFIED Status: Chronic (6) HTN (hypertension) Code(s): I10 - ESSENTIAL (PRIMARY) HYPERTENSION Status: Chronic Qualifiers: Hypertension type: essential hypertension Qualified Code(s): I10 - Essential (primary) hypertension Comment: controlled (7) Morbid obesity with BMI of 50.0-59.9, adult Code(s): E66.01 - MORBID (SEVERE) OBESITY DUE TO EXCESS CALORIES; Z68.43 - BODY MASS INDEX (BMI) 50-59.9 , ADULT Status: Chronic (8) Non-ischemic cardiomyopathy Code(s): I42.9 - CARDIOMYOPATHY, UNSPECIFIED Status: Chronic Comment: (9) UTI (urinary tract infection) Status: Acute Qualifiers: Urinary tract infection type: acute cystitis Hematuria presence: without hematuria Qualified Code(s): N30.00 - Acute cystitis without hematuria (10) Acute urinary retention Code(s): R33.8 - OTHER RETENTION OF URINE Status: Acute - Plan cont current plan of care, anderson catheter, continue antibiotics, PT/OT, high school social studies teacher, speech therapy * continue rocephin and follow up on urine culture * will do voiding trial in 2 days * pt needs more free water via G-tube * continue Dex with water at 50 ml per hour * will repeat labs tomorrow * medication reviewed as below * symptomatic treatment. * eventually will need rehab placement Review of Systems - Review of Systems Eyes: negative: Pain, Vision Change, Conjunctivae Inflammation, Eyelid Inflammation, Redness, Other ENT: negative: Ear Pain, Ear Discharge, Nose Pain, Nose Discharge, Nose Congestion, Mouth Pain, Mouth Swelling, Throat Pain, Throat Swelling, Other Respiratory: negative: Cough, Dry, Shortness of Breath, Hemoptysis, SOB with Excertion, Pleuritic Pain, Sputum, Wheezing Cardiovascular: negative: Chest Pain, Palpitations, Orthopnea, Paroxysmal Noc. Dyspnea, Edema, Light Headedness, Other Gastrointestinal: negative: Nausea, Vomiting, Abdominal Pain, Diarrhea, Constipation, Melena, Hematochezia, Other Genitourinary: Dysuria. negative: Frequency, Incontinence, Hematuria, Retention , Other - Medications/Allergies Allergies/Adverse Reactions: Allergies Allergy/AdvReac Type Severity Reaction Status Date / Time pear Allergy Verified 12/16/16 00:34 tomato Allergy Verified 12/15/16 20:02 Medications: Current Medications Acetaminophen (Tylenol) 650 mg IN Q4H PRN PRN Reason: Headache/Fever or Mild Pain Last Admin: 12/25/16 20:23 Dose: 650 mg Acetaminophen (Tylenol) 650 mg PO Q4H PRN PRN Reason: Headache/Fever or Mild Pain Al Hydroxide/Mg Hydroxide (Maalox) 15 ml PO Q4H PRN PRN Reason: Heartburn or Indigestion Amiodarone HCl (Cordarone) 400 mg PO BID [facility] Last Admin: 12/26/16 09:32 Dose: 400 mg Artificial Tears (Tears Naturale) 0 drop EA EYE PRN PRN PRN Reason: Dry Eyes Aspirin (Aspirin) 300 mg IN DAILY [facility] Last Admin: 12/26/16 09:32 Dose: 300 mg Atorvastatin Calcium (Lipitor) 40 mg PO HS [facility] Last Admin: 12/25/16 20:23 Dose: Not Given Carvedilol (Coreg) 1.562 mg PO BID [facility] Last Admin: 12/26/16 09:31 Dose: 1.562 mg Enoxaparin Sodium (Lovenox) 40 mg SC 0900 [facility] Last Admin: 12/26/16 09:33 Dose: 40 mg Famotidine (Pepcid) 20 mg PO BID [facility] Last Admin: 12/26/16 09:32 Dose: 20 mg Guaifenesin (Robitussin Sf) 200 mg PO Q4H PRN PRN Reason: Cough Hydralazine HCl (Apresoline) 10 mg SLOW IVP Q4H PRN PRN Reason: BP > 220/110 Dextrose/Water (D5w) 1,000 mls @ 50 mls/hr IV .Q20H [facility] Last Admin: 12/25/16 15:11 Dose: 1,000 mls Ceftriaxone Sodium 1 gm/ (Sodium Chloride) 100 mls @ 200 mls/hr IVPB 1400 [facility] Last Admin: 12/25/16 15:10 Dose: 100 mls Labetalol HCl (Normodyne) 20 mg SLOW IVP Q1H PRN PRN Reason: BP > 220/110 Lisinopril (Zestril) 1.25 mg PO DAILY [facility] Last Admin: 12/26/16 09:30 Dose: 1.25 mg Loperamide HCl (Imodium) 2 mg PO PRN PRN PRN Reason: Diarrhea/Loose Stools Magnesium Hydroxide (Milk Of Magnesium) 30 ml PO DAILYPRN PRN PRN Reason: Constipation Mineral Oil/White Petrolatum (Eucerin Cream) 0 gm TOP BIDPRN PRN PRN Reason: Dry Skin Ondansetron HCl (Zofran Odt) 4 mg PO Q6H PRN PRN Reason: Nausea/Vomiting Ondansetron HCl (Zofran) 4 mg IVP Q6H PRN PRN Reason: Nausea/Vomiting Last Admin: 12/26/16 04:40 Dose: 4 mg Senna (Senokot) 2 tab PO HSPRN PRN PRN Reason: Constipation Sodium Chloride (Flush - Normal Saline) 10 ml IVF Q12HR [facility] Last Admin: 12/25/16 20:24 Dose: Not Given Sodium Chloride (Flush - Normal Saline) 10 ml IVF PRN PRN PRN Reason: Saline Flush Last Admin: 12/26/16 04:40 Dose: 10 ml Sodium Chloride ([place] Nasal [place] 0.65%) 0 ml EA NARE QIDPRN PRN PRN Reason: Nasal Congestion
[2016-12-26] MEDS: Dextrose 5% in Water 1,000 ML IV SCH (13:23)
[2016-12-26] MEDS: cefTRIAXone\\ROCEPHIN 1 GM in Sodium Chloride 0.9% 100 ML IVPB SCH (13:23)
[2016-12-26] MEDS: Atorvastatin Calcium 40 MG TAB PO SCH (21:44)
[2016-12-27 06:33] LABS: Anion Gap 14 mmol/L (10-20); BUN (Urea Nitrogen) 52 mg/dL (7.0-18.7); Calc. Creatinine Clearance 104 mL/min (70-130); Calcium 9.5 mg/dL (7.8-10.44); Carbon Dioxide 18 mmol/L (22-29); Chloride 125 mmol/L (98-107); Estimated GFR-MDRD 48
[2016-12-27] MEDS: Enoxaparin Sodium 40 MG/0.4 ML SYRINGE SC SCH (10:18)
[2016-12-27] MEDS: Aspirin 325 MG TAB PER TUBE SCH (10:18)
[2016-12-27] MEDS: Carvedilol 3.125 MG TAB PO SCH ×2 (10:19→20:30)
[2016-12-27] MEDS: Lisinopril 2.5 MG TAB PO SCH (10:19)
[2016-12-27] MEDS: Famotidine 20 MG TAB PO SCH ×2 (10:19→20:31)
[2016-12-27] MEDS: Dextrose 5% in Water 1,000 ML IV SCH (12:18)
--- NOTE | 2016-12-27 12:29 | PRG ---
DATE OF SERVICE: 12/27/2016 SUBJECTIVE: The patient is seen and examined at bedside. She does not want to talk to me. She oj ps her eyes closed during my visit, she does not want to open them. When she is asked how she is do ing, she shows me thumb up. Apparently, she tolerates her feeding without any residuals. OBJECTIVE: VITAL SIGNS: Blood pressure is 116/94, pulse is 74, respiratory rate is 12, temperature is 97.3, O2 saturation is 96% on room air. GENERAL: She is obese, her BMI is 50.9. Her weight is 296 pounds and her height is 5 feet and 4 in ches. She does not follow my commands. She is a bipolar. She does not want to open her eyes. Whe n she is asked, she does not want to open her mouth and I am not trying to force her. NECK: Supple. Thyroid is not palpable. LUNGS: Clear. HEART: S1, S2, somewhat distant. No S3, no S4, no any murmur. ABDOMEN: Obese. There is a protective belt around her abdomen since she pulls on her tube. Bowel sounds are present. EXTREMITIES: No clubbing, cyanosis or edema. NEUROLOGICAL: Difficult to assess since the patient does not follow my commands. LABORATORY DATA: Showed sodium of 151, potassium 5.5, chloride 125, CO2 18, BUN 52, creatinine 1.43 , glucose 146, calcium 9.5. Urine culture did not show any growth at 48 hours. IMPRESSION: 1. 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 2. Acute kidney failure. 3. Oropharyngeal dysphagia, acute. 4. Dyslipidemia, chronic. 5. Hyperkalemia, acute. 6. Hypernatremia and hyperchloremia, acute. 7. Morbid obesity with body mass index of 50. 8. Nonischemic cardiomyopathy with somewhat improved left ventricular ejection fraction at 20%. 9. Questionable urinary tract infection with normal urine culture and positive urinalysis for urina ry tract infection. 10. Acute urinary retention. The patient is with a Correa catheter to drain to gravity. PLAN: To check her UA again, see whether it really needs to continue her antibiotic which is Roceph in. We are going to have a voiding trial tomorrow. I would continue her free water through the G-t ube. We will continue her IV fluids at 50 mL per hour. We will give her 1 dose of Kayexalate throu gh the PEG tube for a potassium of 5.5. The patient will need rehabilitation placement and this can be arranged tomorrow.
[2016-12-27] MEDS: cefTRIAXone\\ROCEPHIN 1 GM in Sodium Chloride 0.9% 100 ML IVPB SCH (13:53)
[2016-12-27 15:00] LABS: Bilirubin Negative (Negative); Blood, Urine Small (Negative); Glucose, Urine (Dipstick) Negative (Negative); Ketone, Urine Negative (Negative); Nitrite Negative (Negative); Protein, Urine (Dipstick) 30 mg/dL (Neg-Trace)
[2016-12-27 15:03] LABS: Bacteria/HPF None Seen HPF (None Seen); Hyaline Casts/LPF 4-6 HYALINE CAST LPF (0-3 Hyaline); RBC/HPF 21-50 HPF (0-3); Squamous Epithelial 0-3 HPF (0-3)
[2016-12-27] MEDS: Atorvastatin Calcium 40 MG TAB PO SCH (20:30)
[2016-12-28 05:06] LABS: Anion Gap 14 mmol/L (10-20); BUN (Urea Nitrogen) 51 mg/dL (7.0-18.7); Calc. Creatinine Clearance 118 mL/min (70-130); Calcium 9.5 mg/dL (7.8-10.44); Carbon Dioxide 22 mmol/L (22-29); Chloride 121 mmol/L (98-107); Estimated GFR-MDRD 55
[2016-12-28] MEDS: Dextrose 5% in Water 1,000 ML IV SCH (08:27)
[2016-12-28] MEDS: Carvedilol 3.125 MG TAB PO SCH ×2 (10:17→20:57)
[2016-12-28] MEDS: Aspirin 325 MG TAB PER TUBE SCH (10:19)
[2016-12-28] MEDS: Enoxaparin Sodium 40 MG/0.4 ML SYRINGE SC SCH (10:19)
[2016-12-28] MEDS: Lisinopril 2.5 MG TAB PO SCH (10:20)
[2016-12-28] MEDS: Famotidine 20 MG TAB PO SCH ×2 (10:21→20:56)
--- NOTE | 2016-12-28 11:22 | PDOC.CTH ---
<Hector Piñaoko - Last Filed: 12/28/16 11:19> Cardiology Progress Note - Subjective The pt was seen and examined. No overnight events. No cardiac complaints. She expressed she is very hungry. - Objective Vital Signs Temp Pulse Resp BP Pulse Ox 12/28/16 10:20 73 12/28/16 08:00 97.5 F L 73 18 98 12/28/16 07:30 97.5 F L 73 18 106/72 98 12/28/16 03:59 86 18 155/80 H 98 12/27/16 23:30 95.7 F L 74 18 102/81 97 Admit Weight 297 lb Weight 296 lb 6.4 oz 12/27/16 12/28/16 12/29/16 06:59 06:59 06:59 Intake Total 3247 3397 135 Output Total 1300 550 Balance 1947 2847 135 - Physical Examination General/Neuro: alert & oriented x3 Neck: no JVD present Lungs: CTA Heart: RRR Abdomen: soft Extremities: other: (No edema) - Telemetry Telemetry Rhythm: AV paced - Labs Result Diagrams: 12/26/16 06:04 12/28/16 04:27 - Assessment/Plan 1. Rt CVA with Lt side weakness - She is alerted, oriented x3 and follow commands; still minimal movement in her Lt toes with command, but no movement at RUE. on ASA via PEG tube; f/u by neurologists. 2. Non-ischemic cardiomyopathy - EF 15-20% yesterday from 10-15%; Bi-V AICD; 3. Acute on chronic systolic heart failure - stable with current medication 4. HTN - stable with BP medication via PEG tube; cont. monitor 5. NNEKA - stable; 6. Dysphagia - surgically PEG tube placed by Dr Ramos; ABD Band to protect PEG tube; 7. Dyslipidemia - Statin med via PEG tube; 8. Hypernatremia - increasing Free water via PEG tube by PCP MAR reviewed <Nilam John - Last Filed: 12/28/16 16:20> Cardiology Progress Note - Objective Vital Signs Temp Pulse Pulse Pulse Resp BP BP 12/28/16 11:42 97.5 F L 81 16 12/28/16 10:20 73 12/28/16 08:30 74 76 103/85 114/83 12/28/16 08:00 97.5 F L 73 18 12/28/16 07:30 97.5 F L 73 18 BP Pulse Ox 12/28/16 11:42 107/85 100 12/28/16 10:20 12/28/16 08:30 12/28/16 08:00 98 12/28/16 07:30 106/72 98 Admit Weight 297 lb Weight 296 lb 6.4 oz 12/27/16 12/28/16 12/29/16 06:59 06:59 06:59 Intake Total 3247 3397 135 Output Total 1300 550 Balance 1947 2847 135 - Labs Result Diagrams: 12/26/16 06:04 12/28/16 04:27 - Assessment/Plan Pt. seen and eval. by me. I agree with the A/P by the IRRIGATION TAX ASSESSOR COLLECTOR.She was more verbal today. RRR, chest clear.
--- NOTE | 2016-12-28 14:54 | PDOC.PN ---
- Subjective Encounter Start Date: 12/28/16 Encounter Start Time: 09:40 - Objective Resuscitation Status: Resuscitation Status FULL:Full Resuscitation MAR Reviewed: Yes Vital Signs & Weight: Vital Signs (12 hours) Temp Pulse Pulse Pulse Resp BP BP 12/28/16 11:42 97.5 F L 81 16 12/28/16 10:20 73 12/28/16 08:30 74 76 103/85 114/83 12/28/16 08:00 97.5 F L 73 18 12/28/16 07:30 97.5 F L 73 18 12/28/16 03:59 86 18 BP Pulse Ox 12/28/16 11:42 107/85 100 12/28/16 10:20 12/28/16 08:30 12/28/16 08:00 98 12/28/16 07:30 106/72 98 12/28/16 03:59 155/80 H 98 Weight Admit Weight 297 lb Weight 296 lb 6.4 oz I&O: 12/27/16 12/28/16 12/29/16 06:59 06:59 06:59 Intake Total 3247 3397 135 Output Total 1300 550 Balance 1947 2847 135 Result Diagrams: 12/26/16 06:04 12/28/16 04:27 Phys Exam - Physical Examination Constitutional: NAD morbidly obese HEENT: PERRLA Neck: no JVD Respiratory: no wheezing, no rales, no rhonchi, clear to auscultation bilateral Cardiovascular: RRR, no significant murmur Gastrointestinal: soft, non-tender, no distention, positive bowel sounds Musculoskeletal: no edema, pulses present Neurological: normal sensation left facial droop, left upper and lower ext motor 0/5 Psychiatric: A&O x 3 Deviation from normal: flat affecvt Skin: no rash, normal turgor (: anderson with light yellow urine) Dx/Plan (1) Acute ischemic right middle cerebral artery (MCA) stroke Code(s): I63.511 - CEREB INFRC D/T UNSP OCCLS OR STENOS OF RIGHT MID CEREB ART Status: Acute Comment: Cont ASA, statin, PT/OT, CM for discharge planning (2) Hypernatremia Code(s): E87.0 - HYPEROSMOLALITY AND HYPERNATREMIA Status: Acute Comment: levels rising now that D5W is not running since patient pulled her IV access. reconsult nutrition for increasing free water in tube feeds (3) Acute urinary retention Code(s): R33.8 - OTHER RETENTION OF URINE Status: Acute Comment: voiding trials in progress (4) Oropharyngeal dysphagia Code(s): R13.12 - DYSPHAGIA, OROPHARYNGEAL PHASE Status: Acute Comment: Oropharyngeal dysphagia due to acute stroke. PEG in place, cont tube feeds (5) UTI (urinary tract infection) Status: Acute Qualifiers: Urinary tract infection type: acute cystitis Hematuria presence: without hematuria Qualified Code(s): N30.00 - Acute cystitis without hematuria Comment: urine cultures negative; will change to PO ceftin empirically (6) Dyslipidemia Code(s): E78.5 - HYPERLIPIDEMIA, UNSPECIFIED Status: Chronic Comment: LDL 67 ; cont statin therapy (7) HTN (hypertension) Code(s): I10 - ESSENTIAL (PRIMARY) HYPERTENSION Status: Chronic Qualifiers: Hypertension type: essential hypertension Qualified Code(s): I10 - Essential (primary) hypertension Comment: controlled (8) Morbid obesity with BMI of 50.0-59.9, adult Code(s): E66.01 - MORBID (SEVERE) OBESITY DUE TO EXCESS CALORIES; Z68.43 - BODY MASS INDEX (BMI) 50-59.9 , ADULT Status: Chronic Comment: Now that dependent on tube feeds, will likely lose weight (9) Non-ischemic cardiomyopathy Code(s): I42.9 - CARDIOMYOPATHY, UNSPECIFIED Status: Chronic Comment: h/o nonischemic cardiomyopathy, LV dysfunction, EF <20% with BiV-AICD, without exacerbation - Plan cont current plan of care, PT/OT, group social worker, speech therapy, DVT proph w/ lovenox DC sitter; no longer necessary -: No IV access; difficult to obtain per delfina. As patient should be going -: to rehab (insurance approval pending) or SNF, will avoid PICC/central line. * .
[2016-12-28] MEDS: Atorvastatin Calcium 40 MG TAB PO SCH (20:56)
[2016-12-28] MEDS: Cefuroxime Axetil 250 MG TAB PO SCH (20:57)
[2016-12-29] MEDS: Dextrose 5% in Water 1,000 ML IV SCH (01:45)
[2016-12-29 05:09] LABS: Anion Gap 15 mmol/L (10-20); BUN (Urea Nitrogen) 50 mg/dL (7.0-18.7); Calc. Creatinine Clearance 121 mL/min (70-130); Calcium 9.3 mg/dL (7.8-10.44); Carbon Dioxide 22 mmol/L (22-29); Chloride 120 mmol/L (98-107); Estimated GFR-MDRD 57; Magnesium 2.1 mg/dL (1.6-2.6); Phosphorus 3.5 mg/dL (2.3-4.7)
--- NOTE | 2016-12-29 07:34 | PDOC.PN ---
- Subjective Encounter Start Date: 12/29/16 Encounter Start Time: 07:31 Subjective: Awake/alert -: Speech abnormal -: No n/v - Objective Resuscitation Status: Resuscitation Status FULL:Full Resuscitation MAR Reviewed: Yes Vital Signs & Weight: Vital Signs (12 hours) Temp Pulse Resp BP Pulse Ox 12/29/16 04:17 97.8 F 66 18 107/80 97 12/29/16 00:20 97.5 F L 70 18 104/61 96 12/28/16 20:50 97.3 F L 66 20 94 L Weight Admit Weight 297 lb Weight 296 lb 6.4 oz I&O: 12/28/16 12/29/16 12/30/16 06:59 06:59 06:59 Intake Total 3397 2936 Output Total 550 650 Balance 2847 2286 Result Diagrams: 12/26/16 06:04 12/29/16 04:11 Phys Exam - Physical Examination Constitutional: NAD HEENT: moist MMs, sclera anicteric Neck: no nodes, no JVD Respiratory: no wheezing, no rales, clear to auscultation bilateral Cardiovascular: no significant murmur, no rub Gastrointestinal: soft, non-tender, positive bowel sounds obese left-sided weakness Psychiatric: normal affect Skin: no rash, normal turgor Dx/Plan (1) Acute ischemic right middle cerebral artery (MCA) stroke Code(s): I63.511 - CEREB INFRC D/T UNSP OCCLS OR STENOS OF RIGHT MID CEREB ART Status: Acute Comment: Cont ASA, statin, PT/OT, CM for discharge planning (2) Acute urinary retention Code(s): R33.8 - OTHER RETENTION OF URINE Status: Acute Comment: voiding trials in progress (3) UTI (urinary tract infection) Status: Acute Qualifiers: Urinary tract infection type: acute cystitis Hematuria presence: without hematuria Qualified Code(s): N30.00 - Acute cystitis without hematuria Comment: urine cultures negative; will change to PO ceftin empirically (4) Dyslipidemia Code(s): E78.5 - HYPERLIPIDEMIA, UNSPECIFIED Status: Chronic Comment: LDL 67 ; cont statin therapy (5) HTN (hypertension) Code(s): I10 - ESSENTIAL (PRIMARY) HYPERTENSION Status: Chronic Qualifiers: Hypertension type: essential hypertension Qualified Code(s): I10 - Essential (primary) hypertension Comment: controlled (6) Morbid obesity with BMI of 50.0-59.9, adult Code(s): E66.01 - MORBID (SEVERE) OBESITY DUE TO EXCESS CALORIES; Z68.43 - BODY MASS INDEX (BMI) 50-59.9 , ADULT Status: Chronic Comment: Now that dependent on tube feeds, will likely lose weight (7) Non-ischemic cardiomyopathy Code(s): I42.9 - CARDIOMYOPATHY, UNSPECIFIED Status: Chronic Comment: h/o nonischemic cardiomyopathy, LV dysfunction, EF <20% with BiV-AICD, without exacerbation - Plan Acute Right MCA CVA with Left-sided Weakness, Dysphagia and Urinary Retention * continue PT/OT * s/p PEG tube placement (Failed Modified Barium Swallow study on 12-22-16) * check labs in AM Hypernatremia * stable/abnormal * increase FWF to 225ml q4h via PEG * continue TFs * check Na in AM Non-Ischemic CM with Acute on Chronic Sytolic CHF Exacerbation * EF 10-15% * s/p BI-V AICD * appreciate cardiology input * continue current meds * monitor I/O's HTN * monitor BP and HR closely Dispo: Awaiting ARU vs. SNF placement, per CM
[2016-12-29] MEDS ORDERED: Sodium Chloride 0.45% 1,000 ML IV SCH (07:45)
[2016-12-29] MEDS: Aspirin 325 MG TAB PER TUBE SCH (07:50)
[2016-12-29] MEDS: Carvedilol 3.125 MG TAB PO SCH ×2 (07:50→20:28)
[2016-12-29] MEDS: Cefuroxime Axetil 250 MG TAB PO SCH ×2 (07:50→20:27)
[2016-12-29] MEDS: Lisinopril 2.5 MG TAB PO SCH (07:51)
[2016-12-29] MEDS: Famotidine 20 MG TAB PO SCH ×2 (07:51→20:28)
[2016-12-29] MEDS: Enoxaparin Sodium 40 MG/0.4 ML SYRINGE SC SCH (07:51)
--- NOTE | 2016-12-29 13:44 | PDOC.CTH ---
<Yolanda Piña - Last Filed: 12/29/16 13:42> Cardiology Progress Note - Subjective The pt was seen and examined. No cardiac complaints. No overnight events. She is waiting for Tx to Rehab, which possible tomorrow. - Objective Vital Signs Temp Pulse Pulse Resp BP BP BP 12/29/16 11:25 97.5 F L 88 20 87/74 L 12/29/16 08:30 76 102/75 12/29/16 08:00 97.5 F L 68 18 12/29/16 07:51 68 12/29/16 07:31 97.5 F L 68 20 99/77 12/29/16 04:17 97.8 F 66 18 107/80 Pulse Ox 12/29/16 11:25 93 L 12/29/16 08:30 12/29/16 08:00 95 12/29/16 07:51 12/29/16 07:31 95 12/29/16 04:17 97 Admit Weight 297 lb Weight 296 lb 6.4 oz 12/28/16 12/29/16 12/30/16 06:59 06:59 06:59 Intake Total 3397 2936 225 Output Total 550 650 Balance 2847 2286 225 - Physical Examination General/Neuro: other: (confused about situation) Neck: no JVD present Lungs: CTA Heart: RRR Abdomen: soft Extremities: other: (No edema) - Telemetry Telemetry Rhythm: AV paced - Labs Result Diagrams: 12/26/16 06:04 12/29/16 04:11 - Assessment/Plan 1. Rt CVA with Lt side weakness - She is alerted, oriented x self and place; confused about situation; able to follow commands; still minimal movement in her Lt toes with command, but no movement at RUE. on ASA via PEG tube; f/u by neurologists. 2. Non-ischemic cardiomyopathy - last Echo showed EF 15-20% from 10-15%; Bi-V AICD; 3. Acute on chronic systolic heart failure - stable with current medication 4. HTN - stable with BP medication via PEG tube; cont. monitor 5. NNEKA - stable; 6. Dysphagia - surgically PEG tube placed by Dr Ramos; ABD Band to protect PEG tube; 7. Dyslipidemia - Statin med via PEG tube; 8. Hypernatremia - increasing Free water via PEG tube by PCP MAR reviewed Review of Systems - Review of Systems Constitutional: reports: no symptoms reported EENTM: reports: no symptoms reported Respiratory: reports: no symptoms reported Cardiac (ROS): reports: no symptoms reported ABD/GI: reports: no symptoms reported : reports: no symptoms reported Musculoskeletal: reports: no symptoms reported <Nilam John - Last Filed: 12/29/16 14:59> Cardiology Progress Note - Objective Vital Signs Temp Pulse Pulse Resp BP BP BP 12/29/16 11:25 97.5 F L 88 20 87/74 L 12/29/16 08:30 76 102/75 12/29/16 08:00 97.5 F L 68 18 12/29/16 07:51 68 12/29/16 07:31 97.5 F L 68 20 99/77 12/29/16 04:17 97.8 F 66 18 107/80 Pulse Ox 12/29/16 11:25 93 L 12/29/16 08:30 12/29/16 08:00 95 12/29/16 07:51 12/29/16 07:31 95 12/29/16 04:17 97 Admit Weight 297 lb Weight 296 lb 6.4 oz 12/28/16 12/29/16 12/30/16 06:59 06:59 06:59 Intake Total 3397 2936 450 Output Total 550 650 Balance 2847 2286 450 - Labs Result Diagrams: 12/26/16 06:04 12/29/16 04:11 - Assessment/Plan Pt. seen and eval. No cardiac changes. I agree with the A/P by the PRODUCTION CONTROL ANALYST. I do not have anything further to add from a cardiac standpoint. prognosis is guarded.
[2016-12-29] MEDS: Atorvastatin Calcium 40 MG TAB PO SCH (20:39)
[2016-12-30] MEDS: Dextrose 5% in Water 1,000 ML IV SCH ×2 (02:20→14:22)
[2016-12-30 06:49] LABS: Anion Gap 13 mmol/L (10-20); BUN (Urea Nitrogen) 50 mg/dL (7.0-18.7); Calc. Creatinine Clearance 120 mL/min (70-130); Calcium 9.4 mg/dL (7.8-10.44); Carbon Dioxide 23 mmol/L (22-29); Chloride 122 mmol/L (98-107); Estimated GFR-MDRD 56
--- NOTE | 2016-12-30 07:32 | PDOC.PN ---
- Subjective Encounter Start Date: 12/30/16 Encounter Start Time: 07:30 Subjective: Awake/alert; abnormal speech -: No n/v -: No agitation - Objective Resuscitation Status: Resuscitation Status FULL:Full Resuscitation Vital Signs & Weight: Vital Signs (12 hours) Temp Pulse Resp BP Pulse Ox 12/30/16 04:00 95.7 F L 70 16 106/79 98 12/30/16 00:13 96.8 F L 75 18 106/93 H 98 12/29/16 20:30 96.4 F L 70 18 94 L 12/29/16 19:51 96.4 F L 70 18 100/81 94 L Weight Admit Weight 297 lb Weight 295 lb 3.2 oz I&O: 12/29/16 12/30/16 12/31/16 06:59 06:59 06:59 Intake Total 2936 2650 Output Total 650 750 Balance 2286 1900 Result Diagrams: 12/26/16 06:04 12/30/16 05:37 Phys Exam - Physical Examination Constitutional: NAD HEENT: PERRLA, moist MMs Neck: no nodes, no JVD Respiratory: no wheezing, no rales Cardiovascular: RRR, no significant murmur Gastrointestinal: soft, non-tender +PEG Lymphatic: no nodes Skin: no rash, normal turgor Dx/Plan (1) Acute ischemic right middle cerebral artery (MCA) stroke Code(s): I63.511 - CEREB INFRC D/T UNSP OCCLS OR STENOS OF RIGHT MID CEREB ART Status: Acute Comment: Cont ASA, statin, PT/OT, CM for discharge planning (2) Acute urinary retention Code(s): R33.8 - OTHER RETENTION OF URINE Status: Acute Comment: voiding trials in progress (3) UTI (urinary tract infection) Status: Acute Qualifiers: Urinary tract infection type: acute cystitis Hematuria presence: without hematuria Qualified Code(s): N30.00 - Acute cystitis without hematuria Comment: urine cultures negative; will change to PO ceftin empirically (4) Dyslipidemia Code(s): E78.5 - HYPERLIPIDEMIA, UNSPECIFIED Status: Chronic Comment: LDL 67 ; cont statin therapy (5) HTN (hypertension) Code(s): I10 - ESSENTIAL (PRIMARY) HYPERTENSION Status: Chronic Qualifiers: Hypertension type: essential hypertension Qualified Code(s): I10 - Essential (primary) hypertension Comment: controlled (6) Morbid obesity with BMI of 50.0-59.9, adult Code(s): E66.01 - MORBID (SEVERE) OBESITY DUE TO EXCESS CALORIES; Z68.43 - BODY MASS INDEX (BMI) 50-59.9 , ADULT Status: Chronic Comment: Now that dependent on tube feeds, will likely lose weight (7) Non-ischemic cardiomyopathy Code(s): I42.9 - CARDIOMYOPATHY, UNSPECIFIED Status: Chronic Comment: h/o nonischemic cardiomyopathy, LV dysfunction, EF <20% with BiV-AICD, without exacerbation - Plan Acute Right MCA CVA with Left-sided Weakness, Dysphagia and Urinary Retention * continue PT/OT * s/p PEG tube placement (Failed Modified Barium Swallow study on 12-22-16) * check labs in AM Hypernatremia (stable) * stable/abnormal * increase FWF to 275ml q4h via PEG * continue TFs * check Na in AM Non-Ischemic CM with Acute on Chronic Sytolic CHF Exacerbation * EF 10-15% * s/p BI-V AICD * appreciate cardiology input * continue current meds * monitor I/O's HTN * monitor BP and HR closely Dispo: Awaiting ARU vs. SNF placement, per CM
[2016-12-30] MEDS: Enoxaparin Sodium 40 MG/0.4 ML SYRINGE SC SCH (08:35)
[2016-12-30] MEDS: Aspirin 325 MG TAB PER TUBE SCH (08:36)
[2016-12-30] MEDS: Famotidine 20 MG TAB PO SCH (08:36)
[2016-12-30] MEDS: Lisinopril 2.5 MG TAB PO SCH (08:36)
[2016-12-30] MEDS: Carvedilol 3.125 MG TAB PO SCH (08:37)
[2016-12-30] MEDS ORDERED: CEFUROXIME AXETIL 125 MG/5 ML PER TUBE SCH (09:00)
[2016-12-30] MEDS: Cefuroxime Axetil 250 MG TAB PO SCH (09:00)
--- NOTE | 2016-12-30 16:33 | PDOC.CTH ---
Cardiology Progress Note - Subjective the pt was seen and examined. No overnight events. No cardiac complaints. She complains of headache. - Objective Vital Signs Temp Pulse Pulse Resp BP BP Pulse Ox 12/30/16 15:38 97.5 F L 70 18 144/63 H 97 12/30/16 11:33 97.5 F L 70 16 116/85 98 12/30/16 09:45 68 109/83 12/30/16 08:36 97.6 F 70 16 94 L 12/30/16 07:40 97.6 F 70 16 112/88 94 L Admit Weight 297 lb Weight 295 lb 3.2 oz 12/29/16 12/30/16 12/31/16 06:59 06:59 06:59 Intake Total 2936 2650 550 Output Total 650 1600 Balance 2286 1050 550 - Physical Examination General/Neuro: alert & oriented x3 Neck: no JVD present Lungs: CTA Heart: RRR Abdomen: soft Extremities: other: Other PE findings: No edema - Labs Result Diagrams: 12/26/16 06:04 12/30/16 05:37 - Assessment/Plan 1. Rt CVA with Lt side weakness - She is alerted, oriented x 3; able to follow commands; still minimal movement in her Lt toes with command, but no movement at RUE. f/u by neurologists. 2. Non-ischemic cardiomyopathy - last Echo showed EF 15-20% from 10-15%; Bi-V AICD; cont. monitor 3. Acute on chronic systolic heart failure - stable with current medication 4. HTN - stable with BP medication via PEG tube; cont. monitor 5. NNEKA - stable; 6. Dysphagia - surgically PEG tube placed by Dr Ramos; ABD Band to protect PEG tube; 7. Dyslipidemia - Statin med via PEG tube; 8. Hypernatremia - increasing Free water via PEG tube by PCP MAR reviewed Review of Systems - Review of Systems Constitutional: reports: no symptoms reported EENTM: reports: no symptoms reported Respiratory: reports: no symptoms reported Cardiac (ROS): reports: no symptoms reported : reports: no symptoms reported Musculoskeletal: reports: no symptoms reported Skin: reports: no symptoms reported Neurological: reports: no symptoms reported Endocrine: reports: no symptoms reported
[2016-12-30 20:13] VITALS: BP 107/91; TEMP 97.3
--- NOTE | 2016-12-30 21:49 | DIS ---
DATE OF ADMISSION: 12/15/2016 DATE OF DISCHARGE: 12/30/2016 PRIMARY DISCHARGE DIAGNOSES: 1. Acute right middle cerebral artery cerebrovascular accident with left-sided weakness, dysphagia, and urinary retention. 2. Hyponatremia. 3. Nonischemic cardiomyopathy with acute on chronic congestive heart failure exacerbation. SECONDARY DISCHARGEDIAGNOSIS: Hypertension. HOSPITAL COURSE SUMMARY: This is a pleasant 46-year-old female, who presented with left-sided weakn ess and was diagnosed with an acute right MCA CVA with associated dysphagia and urinary irritation. She was followed by physical therapy and occupational therapy, and after failing modified barium sw allow study on 12/22/2016, underwent a PEG tube placement. Additionally, she has been noted to have hyponatremia, for which we have been increasing free water flushes incrementally via her PEG tube q .4 hours in addition to tube feeding. With regards to her nonischemic cardiomyopathy with acute on chronic systolic congestive heart failu re exacerbation, her EF is 10% to 15%, and status post bivalve AICD, Cardiology has been following a nd they appreciate their input. The patient currently denies any chest pain, shortness of breath, fevers, or chills. For discharge physical examination, labs, and imaging, please refer to my progress note from earlier today. DISCHARGE MEDICATIONS: Reviewed and reconciled, please refer to chart for details. DISCHARGE PLAN/DISPOSITION: 1. Discharged to acute rehab unit tonight. 2. Continue tube feeds. 3. Activity: Per physical therapy and occupational therapy at the acute rehab facility. 4. Follow up with Cardiology as scheduled. 5. Follow up PCP in 1 week.
== END 2016-12-30 20:32 | DRG 64 ==
LOC: ERS 10:04 → 2SE 11:04 → IMCU/EMU 12-17 10:19 → 2SE 12-21 15:21
PROVIDERS: ADMIT Family Medicine; ATTEND Family Medicine
PROC: 0DJ08ZZ Inspection of Upper Intestinal Tract, Via Natural or Artificial Opening Endoscopic (ICD-10-PCS; principal; 2016-12-20)
PROC: 0DH63UZ Insertion of Feeding Device into Stomach, Percutaneous Approach (ICD-10-PCS; 2016-12-25)
DX: I63.511 Cerebral infarction due to unspecified occlusion or stenosis of right middle cerebral artery (principal); I50.23 Acute on chronic systolic (congestive) heart failure; G93.5 Compression of brain; G93.6 Cerebral edema; N17.9 Acute kidney failure, unspecified; I42.9 Cardiomyopathy, unspecified; Z68.43 Body mass index [BMI] 50.0-59.9, adult; E87.1 Hypo-osmolality and hyponatremia; R47.01 Aphasia; I48.91 Unspecified atrial fibrillation; G81.94 Hemiplegia, unspecified affecting left nondominant side; N30.00 Acute cystitis without hematuria; E87.8 Other disorders of electrolyte and fluid balance, not elsewhere classified; R13.12 Dysphagia, oropharyngeal phase; E66.01 Morbid (severe) obesity due to excess calories; E78.5 Hyperlipidemia, unspecified; I11.0 Hypertensive heart disease with heart failure; E87.5 Hyperkalemia; R33.9 Retention of urine, unspecified; G40.909 Epilepsy, unspecified, not intractable, without status epilepticus; Z95.810 Presence of automatic (implantable) cardiac defibrillator; K29.70 Gastritis, unspecified, without bleeding
CPT/HCPCS: 36415; 36416; 70450; 74000; 74230; 76000; 80048; 80053; 80061; 81001; 81003; 83735; 84100; 85007; 85025; 85027; 87086; 93306; 93880; 99285; A4216; G8978-GP-CM; G8979-GP-CL; G8981-GP-CM; G8982-GP-CJ; G8987-GO-CM; G8988-GO-CK; G8996-GN-CK; G8996-GN-CL; G8996-GN-CN; G8997-GN-CJ; G8997-GN-CK; G8997-GN-CM; G9165-GN-CL; G9166-GN-CJ; J0696; J1100; J1650; J1953; J2001; J2250; J2405; J2704; J3010; J7050; J7799; S0028

== ENCOUNTER 2017-01-04 20:29 | Inpatient (IN) | payer MEDICARE, MEDICAID ==
[2017-01-04 20:55] LABS: Anion Gap 6 mmol/L (-14-95); Critical Call POC Critical Value; Lactate 5.43 mmol/L (0.50-2.20); POC Est. GFR-MDRD-African-Amer 47 (2-60); POC Estimated GFR-MDRD 39 (2-60); T. Carbon Dioxide 21.9 mmol/L (1.0-85.0); pH (Venous) 7.357 (7.35-7.45); vO2 Saturation-calc 67.3 % (0.0-100.0)
[2017-01-04] MEDS ORDERED: Norepinephrine 8 MG/0.9% NS 250 ML ONE (20:58)
[2017-01-04 21:18] LABS: ALT (SGPT) 23 U/L (8-55); AST (SGOT) 55 U/L (5-34); Alkaline Phosphatase 345 U/L (40-150); Anion Gap 23 mmol/L (10-20); BUN (Urea Nitrogen) 48 mg/dL (7.0-18.7); Bilirubin, Total 2.4 mg/dL (0.2-1.2); CK (CPK) 288 U/L (29-168); Calc. Creatinine Clearance 0 mL/min (70-130); Calcium 8.5 mg/dL (7.8-10.44); Carbon Dioxide 17 mmol/L (22-29); Chloride 118 mmol/L (98-107); Estimated GFR-MDRD 42; Globulin 4.5 g/dL (2.4-3.5); Protein, Total 6.8 g/dL (6.0-8.3)
[2017-01-04] MEDS ORDERED: Dextrose 50% Abboject 50 ML SYRINGE ONE (21:19)
[2017-01-04 21:22] LABS: Troponin I 0.064 ng/mL (< 0.028)
[2017-01-04 21:24] LABS: Bilirubin Negative (Negative); Blood, Urine Small (Negative); Glucose, Urine (Dipstick) Negative (Negative); Ketone, Urine Negative (Negative); Nitrite Negative (Negative); Protein, Urine (Dipstick) Negative (Neg-Trace)
[2017-01-04 21:24] LABS: Lactic Acid - Sepsis 5.6 mmol/L (0.5-2.2)
[2017-01-04 21:26] LABS: Oxyhemoglobin 87.3 % (94.0-97.0); Sodium 155 mmol/L (135-148)
[2017-01-04 21:26] LABS: Squamous Epithelial 0-3 HPF (0-3); WBC/HPF 0-3 HPF (0-3)
[2017-01-04 21:27] LABS: Bacteria/HPF 1+ HPF (None Seen); Yeast-All Forms 3+ HPF (None Seen)
[2017-01-04 21:27] LABS: Modified Allen's Test POSITIVE; Vent NO
[2017-01-04 21:28] LABS: Hyaline Casts/LPF 0-3 HYALINE CAST LPF (0-3 Hyaline)
[2017-01-04 21:39] LABS: Hematocrit 54.7 % (36.0-47.0); Mean Platelet Volume 8.2 fL (7.4-10.4); Red Blood Cell (RBC) Count 6.14 mill/uL (4.20-5.40); White Blood Cell (WBC) Count 3.1 thou/uL (4.8-10.8)
--- NOTE | 2017-01-04 21:40 | RAD ---
AP CHEST: History: 46-year-old who was found unresponsive. History of pacemaker. Date: 01-04-17 Comparison: 11-04-15 FINDINGS: AP chest demonstrates intracardiac defibrillator in place. Cardiomegaly is seen. Left upper extremit y PICC line is seen. There is some blunting of the left costophrenic angle compatible with a left si ded pleural effusion. The right lung is fairly well aerated. IMPRESSION: Suboptimal inspiratory effort and left sided pleural effusion. There may be some component of left l ower lobe atelectasis or pneumonia. POS: [facility]
[2017-01-04] MEDS ORDERED: Succinylcholine Chloride 20 MG/ML 10 ml SYRINGE FS ONE ×2 (21:48→21:56)
[2017-01-04] MEDS ORDERED: Fentanyl 100 MCG/2 ML VIAL ONE (21:48)
[2017-01-04 21:55] LABS: Anisocytosis SLIGHT = 6-15 cells (100X) (0-5/hpf); Band 46 % (5-11); Burr Cells MODERATE= 6-15 cells (100X) (0-1/hpf); Hypochromia SLIGHT = 6-15 cells (100X) (0-5/hpf); Metamyelocyte 10 % (0-0); Neutrophil 26 % (42-75); Nucleated RBC 2 % (0); Ovalocytes SLIGHT = 2-5 cells (100X) (0-1/hpf); Reactive Lymphocytes 2 % (0-10); Target Cells SLIGHT = 2-5 cells (100X) (0-1/hpf); Toxic Granulation SLIGHT; Vacuoles MODERATE
[2017-01-04] MEDS ORDERED: Fentanyl 20 MCG/ML 250 ML ONE (22:00)
[2017-01-04] MEDS ORDERED: Vecuronium 10 MG VIAL ONE (22:00)
[2017-01-04 22:22] LABS: PTT 40.4 SEC (22.9-36.1); Prothrombin Time 23.8 SEC (12.0-14.7)
[2017-01-04] MEDS ORDERED: Piperacillin/Tazobactam 4.5 GM VIAL ONE (22:38)
--- NOTE | 2017-01-04 22:48 | RAD ---
AP CHEST: History: Central line placement. Date: 01-04-17 Comparison: 01-04-17 FINDINGS: AP chest demonstrates cardiomegaly. The patient has been intubated. The endotracheal tube is in good position. The nasogastric tube is also in a good position, the distal tip overlying the left upper quadrant of the abdomen. There has been placement of a right subclavian central line, distal tip appearing to be at the SVC/r ight atrial junction. Some pulmonary vascular congestion is seen. Patchy areas of density seen in th e left lung base. IMPRESSION: Placement of nasogastric, endotracheal tube as well as right subclavian central line. POS: [facility]
[2017-01-05] MEDS ORDERED: DOBUTamine 500 mg/250 ml 0 ML ONE (00:27)
[2017-01-05] MEDS ORDERED: DOPamine 400 MG/D5W 250 ML 0 ML ONE (00:28)
[2017-01-05] MEDS ORDERED: Fentanyl 20 MCG/ML 250 ML IVPB SCH (01:03)
[2017-01-05] MEDS ORDERED: Lorazepam 2 MG/ML VIAL SLOW IVP PRN (01:03)
[2017-01-05] MEDS ORDERED: Propofol 1,000 MG/100 ML VIAL IV PRN (01:03)
[2017-01-05] MEDS ORDERED: DISCONTINUE PREVIOUS NARCOTIC PAIN MEDICATIONS AND BENZODIAZEPINES FS SCH (01:03)
[2017-01-05] MEDS ORDERED: Loperamide HCl 2 MG CAP PER TUBE PRN (01:08)
[2017-01-05] MEDS ORDERED: Ondansetron HCl/PF 4 MG/2 ML Vial IVP PRN (01:08)
[2017-01-05] MEDS ORDERED: Dextrose 5% in Water 1,000 ML IV SCH (01:08)
[2017-01-05] MEDS ORDERED: Bisacodyl 10 MG SUPP PR PRN (01:08)
[2017-01-05] MEDS ORDERED: Sedation Protocol FS ONE (01:08)
[2017-01-05] MEDS ORDERED: Milk Of Magnesia 30 ML UDCUP PER TUBE PRN (01:08)
[2017-01-05] MEDS ORDERED: Mag-Al 1200 mg/1200 mg/30 ML UDCUP PER TUBE PRN (01:08)
[2017-01-05] MEDS ORDERED: Ondansetron ODT 4 MG TAB SL PRN (01:08)
[2017-01-05] MEDS ORDERED: Acetaminophen 325 MG TAB PER TUBE PRN (01:08)
[2017-01-05 01:40] VITALS: BMI 43.8
[2017-01-05] MEDS: Sodium Chloride 0.9% 1,000 ML IV SCH ×2 (01:45→02:00)
[2017-01-05] MEDS: Norepinephrine 8 MG/0.9% NS 250 ML IVPB PRN ×2 (02:00→05:29)
[2017-01-05 02:08] LABS: Oxyhemoglobin 92.6 % (94.0-97.0); Sodium 151 mmol/L (135-148)
--- NOTE | 2017-01-05 02:09 | HP ---
PRIMARY CARE PHYSICIAN: City call admission. REASON FOR ADMISSION: Septic shock, respiratory failure. HISTORY OF PRESENT ILLNESS: A 46-year-old -[place] female, who was recently admitted in our hospital on 12/15/2016. At that time, patient had a right MCA cerebrovascular accident with left-s ided weakness. During that admission, patient required NG tube placement surgically and she was dis charged to rehab on 12/30/2016. Patient is a very hard stick and that is why patient was sent [facility] today for PICC line placement from rehabilitation. After the procedure, the patient was feeling altered. This patient was sent to the emergency room for evaluation. When she arrived to our emerg ency room, this patient was lethargic and she was encephalopathic and she was hypotensive. Patient' s condition was deteriorating in the emergency room, required intubation. Patient was hypotensive w ith the lowest blood pressure was 72/52. Patient required Levophed drip. The patient also had a ce ntral line placed. Patient's routine blood tests showed acute kidney failure, lactic acidosis with hypernatremia and hy perchloremia. Patient has received IV fluid. At this point, the patient is not able to provide any history because the patient is intubated. REVIEW OF SYSTEMS: All review of systems tried to review with the patient, but unable to review at this point because of patient is intubated and sedated. PAST MEDICAL HISTORY: Recent right MCA territory cerebrovascular accident with the left-sided weakn ess, history of previous ischemic CVA in 2013, hypertension, dyslipidemia, paroxysmal atrial fibrill ation, seizure disorder, history of nonischemic cardiomyopathy with the most recent echocardiography is 15%-20%, history of peptic ulcer disease, morbid obesity. PAST SURGICAL HISTORY: Right frontal craniotomy with the biopsy, tympanostomy with bilateral ear tu be placement, cardiac catheterization showed normal coronaries in 2016, surgically placed an NG tube placement, PICC line placement, and today central line placement. ALLERGIES: TOMATOES and PEAR, but no known drug allergy. FAMILY HISTORY: Grandmother with history of heart block and pacemaker placement, multiple family me mbers has history of coronary artery disease. SOCIAL HISTORY: Patient is currently from [facility]. The patient is on disability . No history of tobacco, alcohol, or illicit drug abuse. CURRENT HOME MEDICATIONS: The patient was discharged to rehab on following medications: Amiodarone 400 mg p.o. b.i.d., aspirin 325 mg p.o. daily, Lipitor 40 mg p.o. at bedtime, Coreg 1.562 one table t twice daily, Pepcid 20 mg p.o. b.i.d., lisinopril 1.25 mg p.o. daily, phenobarbital 64.8 mg p.o. d aily, Keppra 1000 mg p.o. b.i.d., Aldactone 12.5 mg p.o. daily. PAST PSYCHIATRIC HISTORY: Reviewed and negative. EMERGENCY ROOM COURSE: Patient is given IV fluid bolus, vancomycin, Zosyn, dextrose with water, vec uronium, succinylcholine, fentanyl, and Levophed drip. PHYSICAL EXAMINATION: VITAL SIGNS: Lowest blood pressure in the emergency room was 62/46, currently blood pressure 91/60, pulse 70, respiratory rate 16 on ventilator. Weight 129.3 kilograms, temperature 97.4. GENERAL: Patient is currently intubated. No obvious acute distress. HEENT: Head: Normocephalic, atraumatic. Eyes: Pupils round, reactive to light. Extraocular musc les intact. ENT: Endotracheal tube in place. Moist mucous membranes. NECK: Supple, range of motion is normal. No meningeal signs of irritation. LUNGS: Coarse breath sounds. No obvious rhonchi or rales. CARDIAC: S1, S2 regular without any significant murmur. ABDOMEN: Soft. G-tube in place. No peritoneal signs, no guarding, no rigidity, no rebound. BACK: Unremarkable, no CVA tenderness. EXTREMITIES: Upper extremity: PICC line in place in the left forearm. Lower extremities: No kyler a. Good peripheral pulsation. SKIN: No skin rash. HEMATOLOGICAL SYSTEM: No lymphadenopathy. PSYCHIATRIC: Unable to assess at this point. NEUROLOGIC: Unable to assess at this point because the patient is intubated and sedated. SIGNIFICANT LABS: 1. EKG showing pacemaker rhythm. Chest x-ray based on my review, endotracheal tube in place, nasog astric tube in place, subclavian line in place. 2. CBC: WBC 3.1, hemoglobin 16.4, platelet 195 with bandemia. INR 2.0. ABG: pH 7.37, CO2 29.9, glucose 66.3, bicarbonate 16.7, saturation 90.7. 3. BMP: Sodium 157, potassium 5.1, chloride 113, carbon dioxide 17, anion gap 23, BUN 48, creatini ne 1.60, glucose 69, lactic acid 5.6. 4. LFT: AST 55, ALT 23, alkaline phosphatase 345, albumin 2.3. CK 288, CK-MB 2.7, troponin 0.064. Urinalysis, bacteria yeast plus. ASSESSMENT AND PLAN: 1. Septic shock. This patient has lactic acidosis, hypotension. She has abnormal urinalysis at th is point, the source of infection is not obvious, but we will treat her with broad-spectrum antibiot ic therapy with vancomycin, Zosyn, and Diflucan. The patient is on Levophed therapy. Patient is al so on IV fluid. We will admit to intensive care unit and closely monitor her hemodynamics. 2. Acute encephalopathy due to metabolic as well as septic etiology. Because of her encephalopathy and underlying septic shock, the patient required intubation. 3. Acute respiratory failure with hypoxia. Patient is currently intubated. Initially, ventilator setting is adjusted in the emergency room. The patient will be admitted in intensive care unit. Pu lmonary group will be consulted. While the patient is intubated, we will monitor daily labs and henri ly x-ray, and ABG. We will defer extubation and weaning to Pulmonary Group. 4. Lactic acidosis, likely due to hypoperfusion/sepsis. Patient is on broad-spectrum antibiotic th erapy and intravenous fluid and we will monitor lactic acid level. 5. Hypoglycemia. The patient also has hyperosmolality and that is why we will continue with D5 dex trose with water at 125 mL per hour. We will monitor blood sugar as well as electrolytes. 6. Acute kidney failure. The patient will be on intravenous fluid. The patient is also on Levophe d therapy. We will monitor renal function, avoid nephrotoxic agents. 7. Hypernatremia and hyperchloremia due to hyperosmolarity secondary to last three water intake. A t this point, we will continue with dextrose with water at 125 mL per hour and we will repeat BMP to elma. 8. Abnormal liver function tests, likely related with a part of sepsis. We will monitor liver func tion test while in hospital. 9. Abnormal troponin. We will do serial cardiac enzymes to rule out acute coronary syndrome, coagu lopathy, likely due to underlying sepsis. 10. Recent middle cerebral artery stroke. At this point, we will continue with aspirin 325 mg p.o. daily and Lipitor 40 mg p.o. at bedtime, and amiodarone 400 mg p.o. b.i.d. 11. Seizure disorder. We will continue Keppra 1000 mg per tube b.i.d. and phenobarbital 64.8 mg pe r tube b.i.d. 12. Nonischemic cardiomyopathy. We will consult Cardiology as well while in hospital. 13. Deep venous thrombosis prophylaxis. Lovenox 40 mg subcu daily. 14. Gastrointestinal prophylaxis, Protonix 40 mg IV daily. 15. Code status: The patient is FULL CODE. The patient does not have any surrogate decision maker . Disposition plan based on clinical course. CONDITION: Critical. Prognosis guarded. Total time spent providing critical care to this patient more than 30 minutes in the emergency room.
[2017-01-05 02:11] LABS: Mechanical Tidal Volume 500 ml; Modified Allen's Test POSITIVE; Pressure Support 10 cmH2O; Vent YES
[2017-01-05 02:12] LABS: Mode SIMV
[2017-01-05] MEDS ORDERED: Albumin 25% 25 GM/100 ML BOT IVPB SCH (03:00)
[2017-01-05] MEDS: Dextrose 5 %-0.45 % NaCl 1,000 ML IV SCH ×2 (03:03→08:38)
[2017-01-05 05:02] LABS: ALT (SGPT) 19 U/L (8-55); AST (SGOT) 43 U/L (5-34); Alkaline Phosphatase 230 U/L (40-150); Anion Gap 20 mmol/L (10-20); BUN (Urea Nitrogen) 45 mg/dL (7.0-18.7); Calc. Creatinine Clearance 91 mL/min (70-130); Calcium 7.5 mg/dL (7.8-10.44); Carbon Dioxide 14 mmol/L (22-29); Chloride 120 mmol/L (98-107); Estimated GFR-MDRD 42; Globulin 3.2 g/dL (2.4-3.5); Magnesium 1.9 mg/dL (1.6-2.6); Phosphorus 4.3 mg/dL (2.3-4.7); Protein, Total 5.6 g/dL (6.0-8.3)
[2017-01-05 05:05] LABS: Troponin I 0.047 ng/mL (< 0.028)
--- NOTE | 2017-01-05 05:09 | CON ---
DATE OF CONSULTATION: 01/05/2017 Ms. Powers is a 46-year-old female apparently with longstanding cardiomyopathy. She was recently in the hospital with a CVA in the right middle cerebral artery distribution. She h ad dysphagia requiring a PEG placement. Initially this was attempted by Dr. Lane, but aborted. Dr. Ramos was able to successfully place a PEG. She had complications of elevated chloride and sodium after that. She has an ejection fraction of 1 0-15%. She has a biventricular pacer defibrillator in place. She subsequently was discharged to [facility]. I was told by the ER physician that earlier today she was sent over for a PICC line. It is no t clear to me entirely why a PICC line was being placed. Lab done at 1525 today showed a white count 4.3, but with 50% bands, 23% metamyelocytes, 1% myelocyt es. She had no metamyelocytes on previous CBC 9 days earlier. She apparently returned from the PICC line with altered mental status, was sent over here, intubated by the ER physician and transferred to the ICU. No other history is available to me. Most of the history is obtained from the computer medical records from past admissions and this last admission. PAST MEDICAL HISTORY: 1. Remarkable for a brain biopsy done by Dr. Mendez in the past for leptomeningeal enhancement which did not clearly show a pathological diagnosis on the specimen sent to [facility]. There was appar ently significant crush artifact. 2. History of ischemic stroke in 2013. 3. History of lipid disorder. 4. Hypertension. 5. History of a nonischemic cardiomyopathy with a declining ejection fraction prior to this last ad mission her ejection fraction was 30-40%. 6. History of seizure disorder on Keppra and phenobarbital. 7. History of mildly elevated liver enzymes in the past. 8. History of an ultrasound done in 03/2016 showing a large liver, suboptimal visualization of the gallbladder, but there was suggestion that the gallbladder was small contracted and apparently full of stones, common bile duct at the beginning of the year was 5-6 mm. The remainder of the abdominal ultrasound read by Dr. Ayala over in [place] was unremarkable. 9. History of obesity. 10. History of hypertension. 11. History of cardiac catheterization 08/2016 showing normal coronaries with complete heart block seen on rhythm tracings during the catheterization. 12. History of torsades in the past. 13. History of atrial fibrillation apparently. FAMILY HISTORY: Positive for apparently a family member needed a pacemaker. REVIEW OF SYSTEMS: Not obtainable. PHYSICAL EXAMINATION: VITAL SIGNS: Blood pressure is in the 80s. The patient is in a present rhythm of 70, respiratory r ate is per mechanical ventilation at 22. HEENT: Pupils react. She opens her eyes to sternal rub and then closed them. NECK: Without lymphadenopathy. She is quite obese, she is 5 foot 8, 288 pounds according to the re cords. LUNGS: Clear anteriorly. HEART: Regular rhythm. ABDOMEN: Soft. EXTREMITIES: Without asymmetry. Chest radiograph shows massive cardiomegaly. IMPRESSION: Clinical sepsis with an unclear source. Certainly with her history of stroke could hav e a pneumonia hiding behind her diaphragms or behind her cardiac silhouette. I see no reason to bianca e her down for a noncontrast chest CT to investigate these areas. Her liver enzymes are elevated with a bilirubin of 2.4, AST 55, ALT of 23 and alkaline phosphatase o f 345. Reviewing old records show that these liver enzyme elevations go back a while which I suspec t is hepatic congestion, but the hyperbilirubinemia is new and started 12/22/2016. Even though she has had an ultrasound this year, we will try to repeat one in the morning. She is hypoalbuminemic. Salt-poor albumin may help with her blood pressure issues. She is on Levop hed through her PICC line. Antibiotic therapy will be broadened for now to include Levaquin and van comycin in addition to Zosyn that has already been started. She did have 1 dose of vancomycin to e emergency department. With her cardiomyopathy she is certainly at risk for ischemic bowel. That has obviously become a more difficult diagnosis to make clinically. I doubt she would survive an ex ploratory surgery of her cardiomyopathy. I am not sure if she would tolerate even attempt at cholec ystectomy given the severity of her cardiomyopathy.
[2017-01-05 05:18] LABS: Hematocrit 48.6 % (36.0-47.0); Mean Platelet Volume 9.1 fL (7.4-10.4); Red Blood Cell (RBC) Count 5.53 mill/uL (4.20-5.40); White Blood Cell (WBC) Count 4.1 thou/uL (4.8-10.8)
[2017-01-05 06:00] LABS: Band 41 % (5-11); Metamyelocyte 23 % (0-0); Myelocyte 4 % (0-0); Neutrophil 14 % (42-75); Nucleated RBC 8 % (0); Reactive Lymphocytes 1 % (0-10)
[2017-01-05] MEDS ORDERED: Piperacillin/Tazobactam 3.375 GM, Admixture Fee 1 EACH in Sodium Chloride 0.9% 100 ML IVPB SCH (06:00)
[2017-01-05 06:05] LABS: Anisocytosis MODERATE=16-30 cells (100X) (0-5/hpf)
[2017-01-05 06:06] LABS: Burr Cells MODERATE= 6-15 cells (100X) (0-1/hpf); Polychromasia SLIGHT = 2-3 cells (100X) (0-2/hpf); Schistocytes SLIGHT = 2-5 cells (100X) (0-1/hpf); Toxic Granulation MODERATE; Vacuoles MODERATE
[2017-01-05] MEDS ORDERED: EPINEPHrine 4 MG in Dextrose 5% in Water 250 ML IVP SCH ×2 (06:45)
[2017-01-05] MEDS ORDERED: DOBUTamine 500 mg/250 ml 250 ML IVPB SCH ×2 (07:45→08:15)
[2017-01-05 08:02] LABS: Oxyhemoglobin 92.2 % (94.0-97.0); Sodium 150 mmol/L (135-148)
[2017-01-05 08:05] VITALS: TEMP 99
[2017-01-05 08:08] LABS: Mechanical Tidal Volume 500 ml; Mode SIMV.PSV; Modified Allen's Test NOT DONE; Pressure Support 10 cmH2O; Vent YES
--- NOTE | 2017-01-05 08:36 | ULT ---
ABDOMINAL ULTRASOUND: Date: 01-05-17 Comparison: None. History: Sepsis. Elevated liver function test. Technique: Multiplanar grayscale sonographic imaging of the abdomen obtained. FINDINGS: The body and tail of the pancreas are obscured by bowel gas. Imaged abdominal aorta is unremarkable. Distal abdominal aorta obscured by bowel gas. There is small volume right upper quadrant ascites. The adjacent hepatic parenchyma is heterogeneous and demonstrates an abnormal lobulated peripheral contour, suspicious for cirrhotic change. The right kidney measures 9 cm in craniocaudal dimension, demonstrating no stone, hydronephrosis or mass. Spleen measures up to approximately 11 cm, within normal limits. Left kidney is non-visualized secondary to bowel gas. The gallbladder cannot be visualized. Question a history of cholecystectomy . If the patient has not undergone cholecystectomy, perhaps the gallbladder is completely obscured b y bowel gas. IMPRESSION: Limited study secondary to bowel gas. Left kidney and gallbladder could not be visualized. There is right upper quadrant ascites and the liver is heterogeneous with a lobulated peripheral contour, daniela picious for cirrhosis. POS: [facility]
[2017-01-05] MEDS ORDERED: Sodium Bicarbonate 150 MEQ in Dextrose 5% in Water 1,000 ML IV SCH ×2 (08:45)
[2017-01-05] MEDS ORDERED: Fluconazole In NaCl,Iso-Osm 200 MG in Premix Bag 1 BAG IVPB SCH ×2 (09:00)
[2017-01-05] MEDS ORDERED: levETIRAcetam 500 mg/5 ml Oral Solution PER TUBE SCH (09:00)
[2017-01-05] MEDS ORDERED: Pantoprazole 40 MG VIAL IVP SCH (09:00)
[2017-01-05] MEDS ORDERED: Enoxaparin Sodium 40 MG/0.4 ML SYRINGE SC SCH (09:00)
[2017-01-05] MEDS ORDERED: PHENobarbital 64.8 MG TAB PER TUBE SCH (09:00)
[2017-01-05] MEDS ORDERED: Vancomycin HCl 1 GM in Premix Bag 1 BAG IVPB SCH (09:00)
[2017-01-05] MEDS ORDERED: Aspirin 325 MG TAB PER TUBE SCH (09:00)
[2017-01-05] MEDS ORDERED: Famotidine/PF 20 mg/2ml Vial SLOW IVP SCH (09:00)
--- NOTE | 2017-01-05 09:07 | RAD ---
SEMI UPRIGHT FRONTAL CHEST RADIOGRAPH: Date: 01-05-17 Comparison: 01-04-17 History: CCU patient. FINDINGS: Shallow inspiration and body habitus limits detailed assessment of the chest, especially the perihil ar regions and both lung bases. Stable endotracheal tube and nasogastric tube. Stable multi-lead AICD. Stable right sided vascular c atheter. No pneumothorax is evident. There is perihilar and bibasilar opacity, left greater than rig ht, which may signify infectious pneumonitis, pulmonary edema, and/or volume loss. IMPRESSION: Stable appearance of the chest as detailed above, limited on the basis of body habitus, portable alyce hnique and shallow inspiration. POS: [facility]
--- NOTE | 2017-01-05 14:12 | DS ---
DATE OF : 01/05/2017 at 9:40 a.m. PRIMARY CAUSES OF : 1. Septic shock, UTI, duration 24 hours 2. Severe cardiomyopathy with congestive heart failure exacerbation with an ejection fraction of around 20%, duration 1 day, severe metabolic acidosis due to sepsis. 3. Severe dehydration. 4. Demand ischemia. 5. Acute respiratory failure with hypoxia. SECONDARY CAUSES OF : Include history of recent right MCA infarct with left hemiparesis with dysphagia and PEG tube, morbid obesity with poor functional status, seizure disorder, chronic atrial fibrillation, hypoalbuminemia with albumin levels of 2.4. BRIEF COURSE DURING HOSPITALIZATION: Patient initially was sent from inpatient rehabilitation to the Radiology Department to obtain a PICC line as she was hard stick. While having the procedure, the patient went into altered mental state and she was emergently evaluated by the ER Physicians. She was encephalopathic and hypotensive. Her condition deteriorated requiring intubation in the ER. Patient was hypotensive with blood pressures of 72/52. She was started on Levophed drip and has also had a central line placed. [facility] cultures were obtained. The patient continued to deteriorate overnight and blood gas this morning showed a pH of 7.18. She was on 3 pressors, including Levophed, norepinephrine and dobutamine despite which patient's systolic blood pressure was dropping. She was also on broad-spectrum antibiotics for septic shock. This morning, I spoke to patient's sister, Ms. Holli Benitez and gave an update. She was made DNR due to very poor prognosis with severe hypotension despite being on multiple pressors. The patient went into asystole around 9:40 a.m. The body will be released to family per hospital protocol. The patient's sister is here at bedside with emt dispatcher. Family is not wanting autopsy. [facility]
--- NOTE | 2017-01-05 16:03 | PRG ---
DATE OF SERVICE: 01/05/2017 SUBJECTIVE: Ms. Powers developed asystole while getting an echocardiogram this morning. Her pH have been documented to be continued to fall. Ultrasound of the gallbladder did not visualize her gallbladder, although she did have perihepatic f luid. There is no doubt in my mind that she with a diagnosis of sepsis, but the source remains unclear. It is certainly possible given the severity of her cardiomyopathy that she had ischemic o r bowel. Cholecystitis or cholangitis is also a possibility, but lower on the differential in my opinion, ivette landeros with a history of aspiration pneumonia was in the list of possibilities. Her family had deci ded to make her a do not resuscitate patient prior to her passing.
[2017-01-05] MEDS ORDERED: Atorvastatin Calcium 40 MG TAB PER TUBE SCH (21:00)
== END 2017-01-05 09:40 | disposition expired | DRG 871 ==
LOC: ERS 20:29 → CCU 01-05 00:50
PROVIDERS: ADMIT Internal Medicine; ATTEND Internal Medicine
PROC: 5A1935Z Respiratory Ventilation, Less than 24 Consecutive Hours (ICD-10-PCS; principal; 2017-01-05)
PROC: 0BH17EZ Insertion of Endotracheal Airway into Trachea, Via Natural or Artificial Opening (ICD-10-PCS; 2017-01-05)
DX: A41.9 Sepsis, unspecified organism (principal); R65.21 Severe sepsis with septic shock; J96.01 Acute respiratory failure with hypoxia; J69.0 Pneumonitis due to inhalation of food and vomit; G93.41 Metabolic encephalopathy; E87.2 Acidosis; K55.9 Vascular disorder of intestine, unspecified; N17.9 Acute kidney failure, unspecified; I42.8 Other cardiomyopathies; E87.0 Hyperosmolality and hypernatremia; I69.354 Hemiplegia and hemiparesis following cerebral infarction affecting left non-dominant side; K83.0 Cholangitis; E66.01 Morbid (severe) obesity due to excess calories; G40.909 Epilepsy, unspecified, not intractable, without status epilepticus; I48.0 Paroxysmal atrial fibrillation; I10 Essential (primary) hypertension; E78.5 Hyperlipidemia, unspecified; Z95.0 Presence of cardiac pacemaker; F31.9 Bipolar disorder, unspecified; F32.9 Major depressive disorder, single episode, unspecified; F41.9 Anxiety disorder, unspecified; E87.8 Other disorders of electrolyte and fluid balance, not elsewhere classified; E16.2 Hypoglycemia, unspecified; R94.5 Abnormal results of liver function studies; Z93.1 Gastrostomy status; E80.6 Other disorders of bilirubin metabolism; E86.0 Dehydration; Z66 Do not resuscitate
CPT/HCPCS: 31500; 36415; 36416; 36556; 51702; 71010; 76700; 80053; 81003; 81015; 82330; 82533; 82553; 82803; 82805; 83605; 83735; 83880; 84100; 84484; 85007; 85027; 85060; 85610; 85730; 87040; 87086; 93005; 93306; 94002; 94003; 94640; 94760; 96361; 96365; 96366; 96368; 96375; 96376; 99292; J0171; J1250; J1265; J1450; J1956; J2543; J2920; J3010; J3370; J7050; J7070; J7620; P9047; S0028